=== PATIENT | male | born 1995 | race Caucasian/White ===

== ENCOUNTER → 2017-02-25 | Outpatient (CLI) | payer SELFPAY ==
[2017-02-25 11:21] LABS: HEMATOCRIT 48.3 % (37.9-51.0); HEMOGLOBIN 16.1 g/dL (13.5-17.0); MEAN CORPUSCULAR HEMOGLOBIN 27.7 pg (27.0-33.4); MEAN CORPUSCULAR HGB CONC 33.4 g/dL (32.0-36.0); MEAN CORPUSCULAR VOLUME 83 fl (80-97); RED BLOOD COUNT 5.82 10^6/uL (4.35-5.55); RED CELL DISTRIBUTION WIDTH 13.2 % (11.5-14.0); WHITE BLOOD COUNT 7.3 10^3/uL (4.0-10.5)
[2017-02-25 12:01] LABS: BAND NEUTROPHILS % (MANUAL) 3 % (3-5); BASOPHILS % (MANUAL) 1 % (0-2); EOSINOPHILS % (MANUAL) 12 % (0-6); LYMPHOCYTES % (MANUAL) 26 % (13-45); TOTAL CELLS COUNTED 100
[2017-02-25 12:06] LABS: OVALOCYTES SLIGHT; POIKILOCYTOSIS SLIGHT
[2017-02-25 12:12] LABS: POLYCHROMASIA SLIGHT; STOMATOCYTES SLIGHT
[2017-02-25 12:13] LABS: PLATELET CLUMPS PRESENT
== END ==
LOC: OD 10:04
PROVIDERS: ATTEND Specialist
DX: J32.9 Chronic sinusitis, unspecified (principal)
CPT/HCPCS: 36415; 85025; 87040

== ENCOUNTER 2017-09-28 13:50 | Emergency (ER) | payer SELFPAY ==
--- NOTE | 2017-09-28 15:36 | ER Document Report ---
ED General - General Chief Complaint: Congestion Stated Complaint: HEADACHES,FEVER,CHILLS Time Seen by Provider: 09/28/17 15:08 Mode of Arrival: Ambulatory Information source: Patient TRAVEL OUTSIDE OF THE [place] IN LAST 30 DAYS: No - HPI Patient complains to provider of: Sinus congestion, psychiatric evaluation Onset/Duration: Persistent Quality of pain: Pressure Severity: Mild Notes: Patient is a 21-year-old male he presents to the emergency room complaining of sinus congestion, reporting that he feels as though his sinuses are "being eaten away", or that he "no longer has any sinuses", states that he has had thick green discharge at times, low-grade temps, with nausea, and sore throat at times, and feels his ears popping all the time, sometimes he wakes up in the morning with a facial rash and facial swelling, he has been seen by his primary care provider 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, and placed on antibiotics at different times, has taken antihistamines, [id number] decongestants, and Rhinocort, he is requesting a CT scan to make sure that his sinuses have been been "eaten away", a note from nursing staff indicated that patient's mother has accompanied him to the emergency room and would like to provide further information regarding patient's condition I did have a discussion with patient's mother Priya Tony, with patient's permission, who reports that patient has a long-standing history of psychiatric illness, he is not currently on any medications or in any type of mental health therapy program, but that he self medicates with illegal drugs, shooting up at times, that he has threatened to commit suicide in the past, at one point in time having a toaster plugged in right next to the bathtub while he is bathing, and on Friday he still his mom's debit card, took out $300 which he states he intended to go by a bunch of drugs to overdose on, he gave the money back to her today and admitted that that was his plan, she also indicates that he has been persistently preoccupied with his sinuses for at least the last 2 years and she is concerned this may be a manifestation of his mental illness, he is told her that he believes that there are worms living in his sinuses - Related Data Allergies/Adverse Reactions: No Known Allergies Allergy (Verified 09/28/17 13:56) Home Medications: Current Home Medications No Home Medications 09/28/17 [History] Past Medical History - General Information source: Patient, Parent - Social History Smoking Status: Current Every Day Smoker Drug Abuse: Marijuana Family History: None - Past Medical History Cardiac Medical History: Denies: Hx Heart Attack, Hx Hypertension Pulmonary Medical History: Denies: Hx Asthma Neurological Medical History: Denies: Hx Cerebrovascular Accident, Hx Seizures GI Medical History: Denies: Hx Hepatitis, Hx Hiatal Hernia, Hx Ulcer Infectious Medical History: Denies: Hx Hepatitis Past Surgical History: Reports: Hx Oral Surgery, Hx Orthopedic Surgery - Left foot, Hx Tonsillectomy. Denies: Hx Open Heart Surgery, Hx Pacemaker - Immunizations Hx Diphtheria, Pertussis, Tetanus Vaccination: Yes Review of Systems - Review of Systems Constitutional: No symptoms reported EENT: Sinus pressure Cardiovascular: No symptoms reported Respiratory: No symptoms reported Gastrointestinal: No symptoms reported Genitourinary: No symptoms reported Male Genitourinary: No symptoms reported Musculoskeletal: No symptoms reported Skin: No symptoms reported Hematologic/Lymphatic: No symptoms reported Neurological/Psychological: No symptoms reported -: Yes All other systems reviewed and negative Physical Exam - Vital signs Vitals: Temp Pulse Resp BP Pulse Ox 98.7 F 108 H 16 141/91 H 96 09/28/17 13:57 09/28/17 13:57 09/28/17 13:57 09/28/17 13:57 09/28/17 13:57 Interpretation: Normal - General General appearance: Appears well, Alert - HEENT Head: Normocephalic, Atraumatic Eyes: Normal Pupils: PERRL - Respiratory Respiratory status: No respiratory distress Chest status: Nontender Breath sounds: Normal Chest palpation: Normal - Cardiovascular Rhythm: Regular Heart sounds: Normal auscultation Murmur: No - Abdominal Inspection: Normal Distension: No distension Bowel sounds: Normal Tenderness: Nontender Organomegaly: No organomegaly - Back Back: Normal, Nontender - Extremities General upper extremity: Normal inspection, Nontender, Normal color, Normal ROM , Normal temperature General lower extremity: Normal inspection, Nontender, Normal color, Normal ROM , Normal temperature, Normal weight bearing. No: Kenyetta's sign - Neurological Neuro grossly intact: Yes Cognition: Normal Orientation: AAOx4 Jud Coma Scale Eye Opening: Spontaneous [place] Coma Scale Verbal: Oriented Jud Coma Scale Motor: Obeys Commands Jud Coma Scale Total: 15 Speech: Normal Motor strength normal: LUE, RUE, LLE, RLE Sensory: Normal - Psychological Associated symptoms: Normal affect, Normal mood - Skin Skin Temperature: Warm Skin Moisture: Dry Skin Color: Normal Course - Re-evaluation Re-evalutation: 09/28/17 22:24 Lab and imaging findings are unremarkable and were discussed with patient at bedside, given the information provided by patient's mother I opted to start IVC paperwork on him and have him evaluated by mental health in the morning, as he did take steps towards a suicidal plan, although it eventually he backed out and admitted the plan to his mother, I do believe patient will benefit from the mental health evaluation and ongoing psychiatric treatment, I did discuss this plan with patient at bedside he seems to be cooperative and on board at this point in time 09/28/17 22:25 I did also discuss patient's positive drug screen results with him at bedside, he had initially admitted to smoking marijuana to me, however when I questioned him about opiates he did report that he has been taking Percocets recently - Vital Signs Vital signs: Temp Pulse Resp BP Pulse Ox 98.7 F 108 H 16 141/91 H 96 09/28/17 13:57 09/28/17 13:57 09/28/17 13:57 09/28/17 13:57 09/28/17 13:57 - Laboratory Result Diagrams: 09/28/17 16:15 09/28/17 16:15 Laboratory results interpreted by me: 09/28/17 09/28/17 09/28/17 16:15 16:15 16:19 RBC 5.71 H Eosinophils % 8.8 H Albumin 5.1 H Urine Protein 30 H Urine Urobilinogen 2.0 H Salicylates < 1.0 L Acetaminophen < 10 L - EKG Interpretation by Me EKG shows normal: Sinus rhythm Rate: Normal Rhythm: NSR Discharge - Discharge Clinical Impression: Substance abuse, Suicidal ideation Condition: Stable Disposition: PSYCH HOSP/UNIT
[2017-09-28 16:40] LABS: ABSOLUTE EOSINOPHILS # (AUTO) 0.5 10^3/uL (0.0-0.6); ABSOLUTE LYMPHOCYTES (AUTO) 1.3 10^3/uL (0.5-4.7); ABSOLUTE MONOCYTES (AUTO) 0.4 10^3/uL (0.1-1.4); ABSOLUTE NEUT (AUTO) 3.7 10^3/uL (1.7-8.2); BASOPHILS % (AUTO) 0.5 % (0-2); EOSINOPHILS % (AUTO) 8.8 % (0-6); HEMATOCRIT 46.7 % (37.9-51.0); HEMOGLOBIN 16.1 g/dL (13.5-17.0); HGB HCT DIFFERENCE 1.6; LYMPHOCYTES % (AUTO) 21.2 % (13-45); MEAN CORPUSCULAR HEMOGLOBIN 28.3 pg (27.0-33.4); MEAN CORPUSCULAR HGB CONC 34.5 g/dL (32.0-36.0); MEAN CORPUSCULAR VOLUME 82 fl (80-97); MONOCYTES % (AUTO) 7.4 % (3-13); RED BLOOD COUNT 5.71 10^6/uL (4.35-5.55); RED CELL DISTRIBUTION WIDTH 12.7 % (11.5-14.0); SEGMENTED NEUTROPHILS % (AUTO) 62.1 % (42-78)
--- NOTE | 2017-09-28 16:46 | PSYCHOLOGICAL NOTE ---
Psych Note - Psych Note Psych Note: Patient is a 21 year old male who presents via his mother, due to complaints of something living in his sinus cavity. MD noted concerns over possible paranoia and delusions and petition the patient for an involuntary commitment to further explore the etiology of his presentation. Review of patient's EMR dating back to 2011 suggests a prior psychiatric history, to include prior suicide attempts , placement at [facility], outpatient treatment with [facility] , patient was reportedly etc. per EMR, patient previously engaged in the Suboxone program, but was discharged for noncompliance. EMR reports patient's history includes a diagnosis of mood disorder and ADHD. Mother today reported to MD that there is a family history of schizophrenia. Patient this afternoon states he does not understand why he is being IVC'd and states he came here because of a sinus problem. Patient reports he does smoke some cigarettes per day but denies it to full pack. Patient reports frequent cannabis use. Patient denies any other drugs or alcohol. Patient's mother, Rosalie : left [facility] requesting return contact. Patient is alert and oriented. Mood is anxious with congruent affect. Patient denies suicidal/homicidal ideations, intent, plan, means. Patient denies A/VH. It is unclear if patient is experiencing paranoid delusions at this time. Thought processes were guarded. Conversational speech was within normal limits for rate, tone, and prosody. Intellectual abilities were estimated within average range. Attention and focus are poor. Insight, judgment, impulse control are poor to fair. R/U Unspecified Schizophrenia and or Related Psychosis Patient is recommended to continue under the involuntary commitment petitioned by [facility]. Currently, patient's lab work is still pending, to include toxicology which may assist in determining the etiology of presentation. I consulted with Dr. Guadarrama in regards to the care and management of this patient. DYLANHI is in agreement with disposition and recommendations.
[2017-09-28 16:49] LABS: AMORPHOUS SEDIMENT,URINE TRACE /HPF; APPEARANCE,URINE CLOUDY; BILIRUBIN,URINE NEGATIVE (NEGATIVE); GLUCOSE, URINE NEGATIVE (NEGATIVE); KETONES,URINE NEGATIVE (NEGATIVE); LEUKOCYTE ESTERASE,URINE NEGATIVE (NEGATIVE); NITRITE,URINE NEGATIVE (NEGATIVE); PROTEIN,URINE 30 mg/dL (NEGATIVE); URINE SPECIFIC GRAVITY 1.024
--- NOTE | 2017-09-28 16:53 | RADIOLOGY REPORT (SQ) ---
EXAM DESCRIPTION: CT HEAD WITHOUT COMPLETED DATE/TIME: 09/28/2017 4:27 pm REASON FOR STUDY: injury COMPARISON: None. TECHNIQUE: Axial images acquired through the brain without intravenous contrast. Images reviewed wi th bone, brain and subdural windows. Images stored on PACS. All CT scanners at this facility use dose modulation, iterative reconstruction, and/or weight based d osing when appropriate to reduce radiation dose to as low as reasonably achievable (ALARA). [facility]: Dose Right [facility]: CareDose [facility]: Dose Right [facility]: Teradose 4D [facility]: Fuse Science RADIATION DOSE: Up-to-date CT equipment and radiation dose reduction techniques were employed. CTDIv ol: 49.0 mGy. DLP: 881 mGy-cm. mGy. LIMITATIONS: None. FINDINGS: VENTRICLES: Normal size and contour. CEREBRUM: No masses. No hemorrhage. No midline shift. No evidence for acute infarction. Normal gra y/white matter differentiation. No areas of low density in the white matter. CEREBELLUM: No masses. No hemorrhage. No alteration of density. No evidence for acute infarction. EXTRAAXIAL SPACES: No fluid collections. No masses. ORBITS AND GLOBE: No intra- or extraconal masses. Normal contour of globe without masses. CALVARIUM: No fracture. PARANASAL SINUSES: No fluid or mucosal thickening. SOFT TISSUES: No mass or hematoma. OTHER: No other significant finding. IMPRESSION: NORMAL BRAIN CT WITHOUT CONTRAST. EVIDENCE OF ACUTE STROKE: NO. COMMENT: Quality ID # [id number]: Final reports with documentation of one or more dose reduction techniques (e.g., Automated exposure control, adjustment of the mA and/or kV according to patient size, use of iterative reconstruction technique) TECHNICAL DOCUMENTATION: JOB ID: [id number] [employer]- All Rights Reserved
[2017-09-28 16:56] LABS: ALANINE AMINOTRANSFERASE 36 U/L (21-72); ALBUMIN 5.1 g/dL (3.5-5.0); ALCOHOL < 10 mg/dL (NONE DETECTED); ALKALINE PHOSPHATASE 86 U/L (38-126); ANION GAP 15 (5-19); ASPARTATE AMINO TRANSFERASE 23 U/L (17-59); BILIRUBIN,DIRECT 0.3 mg/dL (0.0-0.4); BILIRUBIN,TOTAL 0.6 mg/dL (0.2-1.3); BLOOD UREA NITROGEN 12 mg/dL (7-20); CALCIUM 9.7 mg/dL (8.4-10.2); CARBON DIOXIDE 30 mmol/L (22-30); CHLORIDE 99 mmol/L (98-107); CREATININE RESULT 0.78 mg/dL (0.52-1.25); GLUCOSE 93 mg/dL (75-110); POTASSIUM 3.7 mmol/L (3.6-5.0); SODIUM 143.9 mmol/L (137-145)
[2017-09-28 17:02] LABS: URINE BARBITURATES SCREEN NEGATIVE; URINE METHADONE SCREEN NEGATIVE; URINE OPIATES LOW UNCONFIRMED POSITIVE; URINE PHENCYCLIDINE SCREEN NEGATIVE
[2017-09-28] MEDS ORDERED: NICOTINE 21 MG/24 HR PATCH.TD24 TD ONE (19:02)
[2017-09-28] MEDS ORDERED: DIPHENHYDRAMINE HCL 50 MG CAPSULE PO ONE (20:18)
[2017-09-29] MEDS ORDERED: CHLORPROMAZINE HCL INJ 25 MG/1 ML AMPULE IM PRN (09:06)
--- NOTE | 2017-09-29 09:18 | EKG REPORT ---
SEVERITY:- ABNORMAL ECG - SINUS RHYTHM NONSPECIFIC INTRAVENTRICULAR CONDUCTION DELAY : Confirmed by: Va Bonner 29-Sep-2017 09:17:53
--- NOTE | 2017-09-29 09:18 | ER Document Report ---
Doctor's Note Notes: 09/29/17 09:18 I have evaluated this patient this am and has no c/o at this time. Feels all of their needs are being met and physical exam is normal. New medications added her psych. Awaiting dispositon per mental health. 09/29/17 15:19 Pt was accepted to [facility] under the care of Dr. Milian. EMTALA filled out and patient is stable for transport by law enforcement.
[2017-09-29] MEDS ORDERED: OLANZAPINE 5 MG TABLET PO SCH (10:00)
[2017-09-29] MEDS ORDERED: BENZTROPINE MESYLATE 1 MG TABLET PO SCH (10:00)
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
[2017-09-29 15:56] VITALS: BP 127/68
== END 2017-09-29 15:30 ==
LOC: ER 13:50
DX: R45.851 Suicidal ideations (principal); F19.10 Other psychoactive substance abuse, uncomplicated; R50.9 Fever, unspecified; F29 Unspecified psychosis not due to a substance or known physiological condition; R51 Headache; F17.200 Nicotine dependence, unspecified, uncomplicated
CPT/HCPCS: 36415; 70450; 80053; 80307; 81001; 85025; 93005; 93010; 99285

== ENCOUNTER 2017-10-06 18:48 | Emergency (ER) | payer SELFPAY ==
[2017-10-06 19:35] VITALS: BP 134/82
--- NOTE | 2017-10-06 23:17 | ER Document Report ---
ED General - General Chief Complaint: Flu Symptoms Stated Complaint: CHILLS,HEAD CONGESTION,MUSCLE SPASMS Time Seen by Provider: 10/06/17 22:45 Notes: Patient is a 21-year-old male with a past medical history of prior psychiatric diagnoses, chronic physical complaints, recently seen in the emergency department for suicidal ideation and apparently spent 1 week as an inpatient and was diagnosed with depression anxiety but has refused to take medications who presents with a multitude of complaints. Patient states repeatedly that he is having diffuse muscle spasms and believes he may have tetanus. He also reports that he has chronic sinus pressure that there must be something wrong with his sinuses. He states the symptoms have been constant and unchanged for the past 2 years. He states he has been taking Augmentin that was prescribed during his most recent evaluation in the emergency department but it has not all improved his discomfort. He denies any fever or vomiting. No focal weakness or numbness. His mother at the bedside does note that the patient feels very strongly that he has something wrong with him despite multiple repeated negative evaluations by ENT, neurology, and primary care doctors. TRAVEL OUTSIDE OF THE [place] IN LAST 30 DAYS: No - Related Data Allergies/Adverse Reactions: No Known Allergies Allergy (Verified 09/28/17 13:56) Past Medical History - General Information source: Patient - Social History Smoking Status: Current Every Day Smoker Frequency of alcohol use: Occasional Drug Abuse: Marijuana, Prescription drugs Lives with: Parents Family History: Reviewed & Not Pertinent Patient has suicidal ideation: No Patient has homicidal ideation: No - Past Medical History Cardiac Medical History: Denies: Hx Heart Attack, Hx Hypertension Pulmonary Medical History: Denies: Hx Asthma Neurological Medical History: Denies: Hx Cerebrovascular Accident, Hx Seizures Renal/ Medical History: Denies: Hx Peritoneal Dialysis GI Medical History: Denies: Hx Hepatitis, Hx Hiatal Hernia, Hx Ulcer Infectious Medical History: Denies: Hx Hepatitis Past Surgical History: Reports: Hx Oral Surgery, Hx Orthopedic Surgery - Left foot, Hx Tonsillectomy. Denies: Hx Open Heart Surgery, Hx Pacemaker - Immunizations Hx Diphtheria, Pertussis, Tetanus Vaccination: Yes Review of Systems - Review of Systems Notes: Constitutional: Negative for fever. HENT: Negative for sore throat. Positive for sinus pressure Eyes: Negative for visual changes. Cardiovascular: Negative for chest pain. Respiratory: Negative for shortness of breath. Gastrointestinal: Negative for abdominal pain, vomiting or diarrhea. Genitourinary: Negative for dysuria. Musculoskeletal: Negative for back pain. Positive for muscle spasms Skin: Negative for rash. Neurological: Negative for headaches, weakness or numbness. 10 point ROS negative except as marked above and in HPI. Physical Exam - Vital signs Vitals: Temp Pulse Resp BP Pulse Ox 99.0 F 101 H 18 134/82 H 99 10/06/17 19:33 10/06/17 19:33 10/06/17 19:33 10/06/17 19:33 10/06/17 19:33 Interpretation: Normal Notes: PHYSICAL EXAMINATION: GENERAL: Well-appearing, well-nourished and in no acute distress. HEAD: Atraumatic, normocephalic. EYES: Pupils equal round and reactive to light, extraocular movements intact, sclera anicteric, conjunctiva are normal. ENT: nares patent, oropharynx clear without exudates. Moist mucous membranes. NECK: Normal range of motion, supple without lymphadenopathy LUNGS: Breath sounds clear to auscultation bilaterally and equal. No wheezes rales or rhonchi. HEART: Regular rate and rhythm without murmurs ABDOMEN: Soft, nontender, normoactive bowel sounds. No guarding, no rebound. No masses appreciated. EXTREMITIES: Normal range of motion, no pitting or edema. No cyanosis. NEUROLOGICAL: No focal neurological deficits. Moves all extremities spontaneously and on command. PSYCH: Normal mood, normal affect. SKIN: Warm, Dry, normal turgor, no rashes or lesions noted. Course - Re-evaluation Re-evalutation: 10/06/17 23:16 Patient presents with multiple vague complaints that did not appear to be concerning for any acute life-threatening pathology. Patient's clinical history and exam is most consistent with chronic somatizations in the setting of psychiatric illness. Vitals are within normal limits at triage and at time of discharge. Physical examination is unremarkable. Patient has tolerated oral intake without difficulty. Patient was not noted to be in distress at any point during their ER visit. At this time, based on the reassuring evaluation, I do not suspect an acute [place], pulmonary embolus, aortic dissection, acute intra- abdominal pathology, stroke, or sepsis.Will discharge with return precautions and follow-up recommendations. Verbal discharge instructions given a the bedside and opportunity for questions given. Medication warnings reviewed. Patient is in agreement with this plan and has verbalized understanding of return precautions and the need for primary care follow-up in the next 24-72 hours. - Vital Signs Vital signs: Temp Pulse Resp BP Pulse Ox 99.0 F 101 H 18 134/82 H 99 10/06/17 19:33 10/06/17 19:33 10/06/17 19:33 10/06/17 19:33 10/06/17 19:33 Discharge - Discharge Clinical Impression: Somatic symptom disorder, Muscle spasm Condition: Good Disposition: HOME, SELF-CARE Additional Instructions: Please return to the emergency room immediately if you experience any concerning symptoms including high fevers, severe headache, chest pain, difficulty breathing, abdominal pain, slurred speech, numbness or weakness in your arms or legs, or any other symptom that concerns you.
== END 2017-10-06 23:15 | disposition home or self-care (01) ==
LOC: ER 18:48
DX: F45.9 Somatoform disorder, unspecified (principal); M62.838 Other muscle spasm; F17.200 Nicotine dependence, unspecified, uncomplicated
CPT/HCPCS: 99283

== ENCOUNTER → 2018-01-03 | Outpatient (CLI) | payer SELFPAY ==
--- NOTE | 2018-01-04 14:05 | RADIOLOGY REPORT (SQ) ---
EXAM DESCRIPTION: MRI HEAD WITHOUT COMPLETED DATE/TIME: 01/03/2018 3:27 pm REASON FOR STUDY: CHRONIC SINUSITIS, LOW BACK PAIN J32.9 CHRONIC SINUSITIS, UNSPECIFIED M54.5 LOW BACK PAIN COMPARISON: None. TECHNIQUE: Multiplanar imaging includes non-contrasted T1, T2, FLAIR, and diffusion with ADC map seq uences. Images stored on PACS. LIMITATIONS: None. FINDINGS: ANATOMY: No anomalies. Normal vascular flow voids. Pituitary fossa normal. CSF SPACES: Normal in size and contour. No hemorrhage. CEREBRUM: Sulci and gyri normal in size and contour. Normal white matter signal on FLAIR imaging. No evidence of hemorrhage, mass, or extraaxial fluid collection. POSTERIOR FOSSA: No signal alteration. No hemorrhage. No edema, masses or mass effect. Internal miley tory canals, cerebello-pontine angles, mastoids normal. DIFFUSION IMAGING: Negative for acute or sub-acute infarction. ORBITS: No masses. Globes normal. PARANASAL SINUSES: Minimal chronic maxillary sinus disease. OTHER: No other significant finding. IMPRESSION: NORMAL MRI OF THE BRAIN WITHOUT INTRAVENOUS GADOLINIUM CONTRAST. EVIDENCE OF ACUTE STROKE: NO. TECHNICAL DOCUMENTATION: JOB ID: [id number] [employer]- All Rights Reserved Reading location - IP/workstation name: [email or web address]
--- NOTE | 2018-01-04 15:02 | RADIOLOGY REPORT (SQ) ---
EXAM DESCRIPTION: MRI LUMBAR SPINE COMBO COMPLETED DATE/TIME: 01/03/2018 3:27 pm REASON FOR STUDY: CHRONIC SINUSITIS, LOW BACK PAIN J32.9 CHRONIC SINUSITIS, UNSPECIFIED M54.5 LOW BACK PAIN COMPARISON: None. TECHNIQUE: Sagittal and Axial imaging includes T1, T1 post gadolinium, T2, STIR and gradient echo se quences. Coronal T2/HASTE imaging. CONTRAST TYPE AND DOSE: Not documented RENAL FUNCTION: None required. The patient is less than 50 years old. LIMITATIONS: None. FINDINGS: VISUALIZED UPPER ABDOMEN: Limited evaluation. No acute or suspicious findings suggested. SEGMENTATION: No transitional anatomy. The lowest well-developed disc space is labeled L5-S1. ALIGNMENT: Anatomic. VERTEBRAE: Intact. No fractures. BONE MARROW: Normal. No marrow replacement or reactive changes. DISC SIGNAL: Normal. No significant abnormal signal or loss of height. POSTERIOR ELEMENTS: Generally intact. No pars defect evident. HARDWARE: None in the spine. CORD AND CONUS: Normal in size and signal intensity. Conus at the appropriate level. SOFT TISSUES: No aortic aneurysm seen. No bulky retroperitoneal adenopathy or mass. No paraspinal mas s or fluid. L1-L2: No significant spinal stenosis or exit foraminal stenosis. L2-L3: No significant spinal stenosis or exit foraminal stenosis. L3-L4: No significant spinal stenosis or exit foraminal stenosis. L4-L5: No significant spinal stenosis or exit foraminal stenosis. L5-S1: No significant spinal stenosis or exit foraminal stenosis. LOWER THORACIC: Incompletely imaged. No stenosis seen. SACRUM: Visualized upper sacrum intact. ENHANCEMENT: No abnormal enhancement. OTHER: No other significant findings. IMPRESSION: NORMAL MRI LUMBAR SPINE. TECHNICAL DOCUMENTATION: JOB ID: [id number] [employer]- All Rights Reserved Reading location - IP/workstation name: [email or web address]
== END ==
LOC: RAD 14:06
PROVIDERS: ATTEND Physician Assistant
DX: J32.9 Chronic sinusitis, unspecified (principal); M54.5 Low back pain
CPT/HCPCS: 72158; 70551; A9577

== ENCOUNTER 2018-03-27 | Emergency (ER) | payer OTHER ==
--- NOTE | 2018-03-27 21:17 | ER Document Report ---
ED General - General Chief Complaint: Stiff Neck Stated Complaint: NECK/SHOULDER PAIN Time Seen by Provider: 03/27/18 20:24 Mode of Arrival: Ambulatory Information source: Patient, Parent Notes: 22-year-old male presents with what he states is a 4 year duration of bacteria eating him from the inside out. Patient states he feels bacteria is all throughout his body in his face and his back in the spinal cord in his abdomen. Patient also notes that he has neck and muscle tightness after he yawned, patient also notes that he has numbness of his right toes and numbness of the third fourth fifth digits on his right hand. Patient denies any fevers patient notes a rash on his face of 1 year duration. TRAVEL OUTSIDE OF THE [place] IN LAST 30 DAYS: No - HPI Onset: Other - 3-4 year duration Onset/Duration: Waxing and waning Quality of pain: Cramping Severity: Mild Pain Level: 1 Associated symptoms: Other Exacerbated by: Denies Relieved by: Denies Similar symptoms previously: Yes Recently seen / treated by doctor: Yes - Patient has been seen by multiple physicians with no improvement of symptom - Related Data Allergies/Adverse Reactions: No Known Allergies Allergy (Verified 11/23/17 17:45) Past Medical History - Social History Smoking Status: Former Smoker Cigarette use (# per day): No Chew tobacco use (# tins/day): No Smoking Education Provided: No Frequency of alcohol use: None Drug Abuse: None Family History: Reviewed & Not Pertinent Patient has suicidal ideation: No Patient has homicidal ideation: No - Past Medical History Cardiac Medical History: Denies: Hx Heart Attack, Hx Hypertension Pulmonary Medical History: Denies: Hx Asthma Neurological Medical History: Denies: Hx Cerebrovascular Accident, Hx Seizures Renal/ Medical History: Denies: Hx Peritoneal Dialysis GI Medical History: Denies: Hx Hepatitis, Hx Hiatal Hernia, Hx Ulcer Infectious Medical History: Denies: Hx Hepatitis Past Surgical History: Reports: Hx Oral Surgery, Hx Orthopedic Surgery - Left foot, Hx Tonsillectomy. Denies: Hx Open Heart Surgery, Hx Pacemaker - Immunizations Hx Diphtheria, Pertussis, Tetanus Vaccination: Yes Review of Systems - Review of Systems Notes: REVIEW OF SYSTEMS: CONSTITUTIONAL : Denies fever, chills, or sweats. Admits to chronic illness. EENT: Admits to nasal drainage CARDIOVASCULAR: Denies chest pain. Denies palpitations or racing or irregular heart beat. Denies ankle edema. RESPIRATORY: Denies cough, cold, or chest congestion. Denies shortness of breath, difficulty breathing, or wheezing. GASTROINTESTINAL: Denies abdominal pain or distention. Denies nausea, vomiting , or diarrhea. Denies blood in vomitus, stools, or per rectum. Denies black, tarry stools. Denies constipation. GENITOURINARY: Denies difficulty urinating, painful urination, burning, frequency, blood in urine, or discharge. MUSCULOSKELETAL: Admits to neck pain muscle tightness SKIN: Admits to facial rash HEMATOLOGIC : Denies easy bruising or bleeding. LYMPHATIC: Denies swollen, enlarged glands. NEUROLOGICAL: Denies confusion or altered mental status. Denies passing out or loss of consciousness. Denies dizziness or lightheadedness. Denies headache. Denies weakness or paralysis or loss of use of either side. Denies problems with gait or speech. Denies sensory loss, numbness, or tingling. Denies seizures. PSYCHIATRIC: Admits to anxiety ALL OTHER SYSTEMS REVIEWED AND NEGATIVE. Dictation was performed using [employer] voice recognition software PHYSICAL EXAMINATION: GENERAL: Well-appearing, well-nourished and in no acute distress. HEAD: Atraumatic, normocephalic. EYES: Pupils equal round and reactive to light, extraocular movements intact, sclera anicteric, conjunctiva are normal. ENT: Nares patent, oropharynx clear without exudates. Moist mucous membranes. NECK: Normal range of motion, supple without lymphadenopathy LUNGS: Breath sounds clear to auscultation bilaterally and equal. No wheezes rales or rhonchi. HEART: Regular rate and rhythm without murmurs ABDOMEN: Soft, nontender, nondistended abdomen. No guarding, no rebound. No masses appreciated. Musculoskeletal: Normal range of motion, no pitting or edema. No cyanosis. NEUROLOGICAL: Cranial nerves grossly intact. Normal speech, normal gait. Normal sensory, motor exams PSYCH: Extremely anxious and paranoid. SKIN: Dry eczema rash on face Physical Exam - Vital signs Vitals: Temp Pulse Resp BP Pulse Ox 98.3 F 111 H 18 138/82 H 97 03/27/18 20:21 03/27/18 20:21 03/27/18 20:21 03/27/18 20:21 03/27/18 20:21 Course - Re-evaluation Re-evalutation: 03/27/18 23:07 I have explained to this patient that there is no bacteria that is eating him from the inside out, especially not one that is lasted 3-4 years without causing any fevers or any abnormalities. Patient overall looks well is in no distress is extremely anxious and paranoid, his mother seems to agree with his statements, they are requesting a lumbar puncture be performed for possible abscesses in his back, I have explained to them that I will not be performing a lumbar puncture as there is no qualifications or criteria for this at this time. However I will give them mental health evaluation and neurology follow- up patient will also be given steroid cream for his dry rash on his face After performing a Medical Screening Examination, I estimate there is LOW risk for CENTRAL CORD SYNDROME, LUDWIGS ANGINA, PERITONSILLAR ABSCESS, RETROPHARYNGEAL ABSCESS, EPIDURAL MASS LESION, SEVERE SPINAL STENOSIS, ARTERIAL DISSECTION, MENINGITIS, or ACUTE CORONARY SYNDROME, thus I consider the discharge disposition reasonable. I have reevaluated this patient multiple times and no significant life threatening changes are noted. The patient and I have discussed the diagnosis and risks, and we agree with discharging home to follow-up on an outpatient basis with the understanding that symptoms and presentations can change. We also discussed returning to the Emergency Department immediately if new or worsening symptoms occur. We have discussed the symptoms which are most concerning (e.g., saddle anesthesia, urinary or bowel incontinence or retention, changing or worsening pain) that necessitate immediate return. - Vital Signs Vital signs: Temp Pulse Resp BP Pulse Ox 98.3 F 99 18 129/82 H 97 03/27/18 21:25 03/27/18 21:25 03/27/18 21:25 03/27/18 21:25 03/27/18 21:25 Discharge - Discharge Clinical Impression: Rash and nonspecific skin eruption, Anxiety Condition: Stable Disposition: HOME, SELF-CARE Instructions: Anxiety ([facility]) Prescriptions: Hydrocortisone/Oatmeal/Aloe/E [Hydrocortisone 1% Cream] 28.4 gm TP BID #1 cream.gm. Referrals: SONAL SCOTT MD [NO LOCAL MD] - Follow up tomorrow
== END 2018-03-27 21:27 | disposition home or self-care (01) ==
CPT/HCPCS: 99283

== ENCOUNTER 2018-05-05 12:43 | Emergency (ER) | payer OTHER ==
--- NOTE | 2018-05-05 13:02 | ER Document Report ---
ED Medical Screen (RME) - General Chief Complaint: Psych Problem Stated Complaint: IVC W/PAPERS Time Seen by Provider: 05/05/18 12:54 Notes: RAPID MEDICAL EVALUATION DISCLOSURE I have seen this patient as part of a Rapid Medical Evaluation and, if applicable, placed any initially appropriate orders. The patient will be seen and fully evaluated, including a full history and physical exam, by a provider ( in Main ED or Fast Track) when a room becomes available. 22-year-old male brought here by the geospatial intelligence analyst's office for "suicidal ideations, cursing out bystanders, lasting 1 minute, thinking he is dying, and refusing to take treatment for possible bipolar or schizophrenia" per the IVC paperwork filled out by his mother. The patient denies all of this. He denies SI HI hallucinations. EXAM Tachycardic Appears calm/cooperative TRAVEL OUTSIDE OF THE [place] IN LAST 30 DAYS: No - Related Data Allergies/Adverse Reactions: No Known Allergies Allergy (Verified 05/05/18 12:43) Past Medical History - Social History Chew tobacco use (# tins/day): No Frequency of alcohol use: None Drug Abuse: None - Past Medical History Cardiac Medical History: Denies: Hx Heart Attack, Hx Hypertension Pulmonary Medical History: Denies: Hx Asthma Neurological Medical History: Denies: Hx Cerebrovascular Accident, Hx Seizures Renal/ Medical History: Denies: Hx Peritoneal Dialysis GI Medical History: Denies: Hx Hepatitis, Hx Hiatal Hernia, Hx Ulcer Psychiatric Medical History: Reports: Hx Bipolar Disorder, Hx Depression, Hx Schizophrenia Infectious Medical History: Denies: Hx Hepatitis Past Surgical History: Reports: Hx Oral Surgery, Hx Orthopedic Surgery - Left foot, Hx Tonsillectomy. Denies: Hx Open Heart Surgery, Hx Pacemaker - Immunizations Hx Diphtheria, Pertussis, Tetanus Vaccination: Yes Physical Exam - Vital signs Vitals: Temp Pulse Resp BP Pulse Ox 99.8 F 125 H 16 139/81 H 96 05/05/18 12:47 05/05/18 12:47 05/05/18 12:47 05/05/18 12:47 05/05/18 12:47 Course - Vital Signs Vital signs: Temp Pulse Resp BP Pulse Ox 99.8 F 125 H 16 139/81 H 96 05/05/18 12:47 05/05/18 12:47 05/05/18 12:47 05/05/18 12:47 05/05/18 12:47
[2018-05-05 13:28] LABS: ABSOLUTE EOSINOPHILS # (AUTO) 0.1 10^3/uL (0.0-0.6); ABSOLUTE LYMPHOCYTES (AUTO) 1.2 10^3/uL (0.5-4.7); ABSOLUTE MONOCYTES (AUTO) 0.7 10^3/uL (0.1-1.4); ABSOLUTE NEUT (AUTO) 7.7 10^3/uL (1.7-8.2); BASOPHILS % (AUTO) 0.5 % (0-2); EOSINOPHILS % (AUTO) 0.8 % (0-6); HEMATOCRIT 46.4 % (37.9-51.0); HEMOGLOBIN 15.8 g/dL (13.5-17.0); LYMPHOCYTES % (AUTO) 12.8 % (13-45); MEAN CORPUSCULAR HEMOGLOBIN 28.2 pg (27.0-33.4); MEAN CORPUSCULAR HGB CONC 34.1 g/dL (32.0-36.0); MEAN CORPUSCULAR VOLUME 83 fl (80-97); MONOCYTES % (AUTO) 6.7 % (3-13); PLATELET COUNT 201 10^3/uL (150-450); RED CELL DISTRIBUTION WIDTH 13.4 % (11.5-14.0); SEGMENTED NEUTROPHILS % (AUTO) 79.2 % (42-78); TOTAL CELLS COUNTED % (AUTO) 100 %; WHITE BLOOD COUNT 9.7 10^3/uL (4.0-10.5)
[2018-05-05 13:46] LABS: ALANINE AMINOTRANSFERASE 40 U/L (21-72); ALBUMIN 5.2 g/dL (3.5-5.0); ALKALINE PHOSPHATASE 68 U/L (38-126); ANION GAP 15 (5-19); ASPARTATE AMINO TRANSFERASE 48 U/L (17-59); BILIRUBIN,DIRECT 0.3 mg/dL (0.0-0.4); BILIRUBIN,TOTAL 0.9 mg/dL (0.2-1.3); BLOOD UREA NITROGEN 18 mg/dL (7-20); CALCIUM 9.6 mg/dL (8.4-10.2); CARBON DIOXIDE 27 mmol/L (22-30); CHLORIDE 104 mmol/L (98-107); GLUCOSE 106 mg/dL (75-110); POTASSIUM 3.5 mmol/L (3.6-5.0); SODIUM 146.4 mmol/L (137-145); TOTAL PROTEIN 8.1 g/dL (6.3-8.2)
[2018-05-05 13:47] LABS: ACETAMINOPHEN < 10 ug/mL (10-30); ALCOHOL < 10 mg/dL (NONE DETECTED); SALICYLATE < 1.0 mg/dL (2.0-20.0)
[2018-05-05 14:37] LABS: APPEARANCE,URINE CLOUDY; BILIRUBIN,URINE NEGATIVE (NEGATIVE); GLUCOSE, URINE NEGATIVE (NEGATIVE); KETONES,URINE 80 mg/dL (NEGATIVE); LEUKOCYTE ESTERASE,URINE NEGATIVE (NEGATIVE); NITRITE,URINE NEGATIVE (NEGATIVE); PROTEIN,URINE NEGATIVE (NEGATIVE); URINE SPECIFIC GRAVITY 1.026; UROBILINOGEN,URINE NEGATIVE mg/dL (<2.0)
[2018-05-05 14:41] LABS: URINE AMPHETAMINES SCREEN NEGATIVE; URINE BARBITURATES SCREEN NEGATIVE; URINE BENZODIAZEPINES SCREEN NEGATIVE; URINE COCAINE SCREEN NEGATIVE; URINE MARIJUANA (THC) SCREEN NEGATIVE; URINE METHADONE SCREEN NEGATIVE; URINE PHENCYCLIDINE SCREEN NEGATIVE
[2018-05-05 14:42] LABS: COLOR,URINE YELLOW
--- NOTE | 2018-05-05 14:45 | ER Document Report ---
ED Psych Disorder / Suicide - General Chief Complaint: Psych Problem Stated Complaint: IVC W/PAPERS Time Seen by Provider: 05/05/18 12:54 Notes: 22-year-old male brought here by the mediation commissioner's office for "suicidal ideations, cursing out bystanders, lasting 1 minute, thinking he is dying, and refusing to take treatment for possible bipolar or schizophrenia" per the IVC paperwork filled out by his mother. The patient denies all of this. He denies SI HI hallucinations. Chief complaint: Suicidal History of complain:( obtained from----patient) 22 years old male with a psychiatric history was shouting on [id number] and yelling that that he wants to end his life and Huan is coming. And apparently not been taking his medication. Therefore he was an IVC by the mother and the police brought him to the ED. Though patient denies. Onset: As above Duration: Sudden just prior to arrival Severity: Moderate to severe Quality: Psychosis Context: Exacerbating factor and relieving factors: Noncontributory REVIEW OF SYSTEMS: CONSTITUTIONAL : Denies fever, chills, or sweats. Denies recent illness. EENT: Denies eye, ear, throat, or mouth pain or symptoms. Denies nasal or sinus congestion or discharge. Denies throat, tongue, or mouth swelling or difficulty swallowing. CARDIOVASCULAR: Denies chest pain. Denies palpitations or racing or irregular heart beat. Denies ankle edema. RESPIRATORY: Denies cough, cold, or chest congestion. Denies shortness of breath, difficulty breathing, or wheezing. GASTROINTESTINAL: Denies distention. Denies nausea, vomiting, or diarrhea. Denies blood in vomitus, stools, or per rectum. Denies black, tarry stools. Denies constipation. GENITOURINARY: Denies difficulty urinating, painful urination, burning, frequency, blood in urine, or discharge. FEMALE GENITOURINARY: Denies vaginal bleeding, heavy or abnormal periods, irregular periods. Denies vaginal discharge or odor. MUSCULOSKELETAL: Denies back or neck pain or stiffness. Denies joint pain or swelling. SKIN: Denies rash, lesions or sores. HEMATOLOGIC : Denies easy bruising or bleeding. LYMPHATIC: Denies swollen, enlarged glands. NEUROLOGICAL: Denies confusion or altered mental status. Denies passing out or loss of consciousness. Denies dizziness or lightheadedness. Denies headache. Denies weakness or paralysis or loss of use of either side. Denies problems with gait or speech. Denies sensory loss, numbness, or tingling. Denies seizures. PSYCHIATRIC: Denies anxiety or stress. Hallucination and appeared to be calm not eliciting any depression or suicidal ideation ALL OTHER SYSTEMS REVIEWED AND NEGATIVE. PHYSICAL EXAMINATION: GENERAL: Well-appearing, well-nourished and in no acute distress. HEAD: Atraumatic, normocephalic. EYES: Pupils equal round and reactive to light, extraocular movements intact, conjunctiva are normal. ENT: Nares patent, oropharynx clear without exudates. Moist mucous membranes. NECK: Normal range of motion, supple without lymphadenopathy LUNGS: Breath sounds clear to auscultation bilaterally and equal. No wheezes rales or rhonchi. HEART: Regular rate and rhythm without murmurs ABDOMEN: Soft, nontender, nondistended abdomen. No guarding, no rebound. No masses appreciated. Examination of genitals-deferred Musculoskeletal: Normal range of motion, no pitting or edema. No cyanosis. NEUROLOGICAL: Cranial nerves grossly intact. Normal speech, normal gait. Normal sensory, motor exams PSYCH: Normal mood, normal affect. Suicidal ideation. SKIN: Warm, Dry, normal turgor, no rashes or lesions noted. Dictation was performed using [employer] voice recognition software Addendum: Patient had an episode of psychosis with abnormal behavior running and jumping on the bed calling that Huan is coming. He has direct communication with him. TRAVEL OUTSIDE OF THE [place] IN LAST 30 DAYS: No - Related Data Allergies/Adverse Reactions: No Known Allergies Allergy (Verified 05/05/18 12:43) Past Medical History - Social History Smoking Status: Current Some Day Smoker Chew tobacco use (# tins/day): No Frequency of alcohol use: None Drug Abuse: None Family History: Reviewed & Not Pertinent Patient has suicidal ideation: No Patient has homicidal ideation: No - Past Medical History Cardiac Medical History: Denies: Hx Heart Attack, Hx Hypertension Pulmonary Medical History: Denies: Hx Asthma Neurological Medical History: Denies: Hx Cerebrovascular Accident, Hx Seizures Renal/ Medical History: Denies: Hx Peritoneal Dialysis GI Medical History: Denies: Hx Hepatitis, Hx Hiatal Hernia, Hx Ulcer Psychiatric Medical History: Reports: Hx Bipolar Disorder, Hx Depression, Hx Schizophrenia Infectious Medical History: Denies: Hx Hepatitis Past Surgical History: Reports: Hx Oral Surgery, Hx Orthopedic Surgery - Left foot, Hx Tonsillectomy. Denies: Hx Open Heart Surgery, Hx Pacemaker - Immunizations Hx Diphtheria, Pertussis, Tetanus Vaccination: Yes Review of Systems - Review of Systems Notes: Dictated Physical Exam - Vital signs Vitals: Temp Pulse Resp BP Pulse Ox 99.8 F 125 H 16 139/81 H 96 05/05/18 12:47 05/05/18 12:47 05/05/18 12:47 05/05/18 12:47 05/05/18 12:47 - Notes Notes: Dictated Course - Re-evaluation Re-evalutation: 05/05/18 17:21 Given antipsychotic medications - Vital Signs Vital signs: Temp Pulse Resp BP Pulse Ox 99.8 F 125 H 16 139/81 H 96 05/05/18 12:47 05/05/18 12:47 05/05/18 12:47 05/05/18 12:47 05/05/18 12:47 - Laboratory Result Diagrams: 05/05/18 13:08 05/05/18 13:08 Laboratory results interpreted by me: 05/05/18 05/05/18 05/05/18 13:08 13:08 13:17 RBC 5.60 H Seg Neutrophils % 79.2 H Lymphocytes % 12.8 L Sodium 146.4 H Potassium 3.5 L Albumin 5.2 H Urine Ketones 80 H Urine Ascorbic Acid 40 H Salicylates < 1.0 L Acetaminophen < 10 L Discharge - Discharge Clinical Impression: Acute psychosis
[2018-05-05] MEDS ORDERED: BENZTROPINE MESYLATE INJ 2 MG/2 ML AMPULE IM ONE ×2 (15:34→20:15)
[2018-05-05] MEDS ORDERED: CHLORPROMAZINE HCL INJ 25 MG/1 ML AMPULE IM SCH (15:45)
--- NOTE | 2018-05-05 16:03 | PSYCHOLOGICAL NOTE ---
Psych Note - Psych Note Psych Note: Reason for Consult: abnormal behaviour 22-year-old male brought here by the floor care specialist's office for "suicidal ideations, cursing out bystanders, lasting 1 minute, thinking he is dying, and refusing to take treatment for possible bipolar or schizophrenia" per the IVC paperwork filled out by his mother. The patient denies all of this. He denies SI HI hallucinations. Clinician greeted patient who presented very polite and calm. He disclosed that he does not understand why he is here stating that his mother is saying things that are untrue. Patient admits to cussing when he accidentally hit his leg with a weed sintia however denies cussing for extended period of time or intending because anyone harm her to scare them. Patient reports that he lives with his grandmother; denies suicidal and homicidal ideation. Patient provides consent for clinician to call the patient's grandmother to only discuss with his grandmother if she has any concerns. Behavior health team received phone call from patient's mother. She disclose significant concern for the patient. She reports the patient will be fine one moment and then the next moment he is out of control. She disclosed that today Clinician spoke with Birdie Tony, patient's grandmother. She states the patient "needs some help... more than I can help him... when he gets mad it is like his two different people... there is a good and then there is some kind of evil." She reports that the patient is unable to maintain employment. She reports that last night he went to the taoist and he was "out of control" focused on baptism, scared the young children , and was running up and down the street "praising the Lord." She disclosed that the patient verbalizes suicidal ideation frequently is very manipulative. She continued to report the patient is very focused on his health and feels that he is always dying; "he is always on the Internet looking up things to try to figure out what is wrong with him." She discloses "I am afraid he will snap at me he has never been physical with me at though." She continues state "he is not fit for society I do not know what is wrong with him he needs help." She reports that today patient's boss Danielito, called her asking what was wrong with the patient because he is "crazy." [facility] ED visit 05/01/2018 attending physicians' noted: Patient presents complaining of being sick and needing to come to a definitive conclusion to symptoms he has been having for the past 3 and half years. Patient complains of a facial rash and feeling as though his skin is falling off. Patient also reports twitching and pinpricking sensation in his eyes and headache pain with a sensation that feels like something needs to come out of his head. Patient states that he feels as though things are coming from his nose that are coming from inside of his head, patient then proceeded to pick his nose, and show me this is evidence of what needs to come out of his head. He denies fever or chills, nausea vomiting, current headache, or any current symptoms other than the sensation that something needs to "come out of the head ". Patient states he had an autoimmune panel already performed an extensive workup by his primary care provider. Patient denies suicidal or homicidal ideation. He states he has been told that it is psychological or anxiety related but he does not feel that this is the case. He denies any daily medications or diagnosed medical problems. Patient did become suddenly emotional, began talking about spiritual matters, began speaking about Huan and his spiritual condition. He is not suicidal or homicidal. He states he does not want any additional help for this. Patient got up and left the room. I discussed with mom, she states that she feels that patient has schizophrenia based on his delusions and abnormal behaviors, however patient has already had this discussed in detail and has refused all evaluation and treatment for this. She states that if he were restrained and held here he would be discharged and then he would not take his medications. She states she is ready to just take him home. Clinician met with patient again after receiving collateral information and reviewing patient's chart. When clinician asked the patient to explain the different reports the patient is disclosing verses other reports, the patient became withdrawn. Clinician ask the patient to explain in his words what happened Friday during his [facility] ED visit patient became visibly upset stating "I see...you know... You know what happened." Clinician calmly explain that it was not known and that was why he was being asked when the patient put his hands behind his head turned his head to the side was shaking his leg at which point the patient turned his head back towards the patient clinician started to verbally threatening the clinician stating "you better watch out... I am God's favorite... you better watch yourself." Patient continued to escalate screaming and hollering with hyper hindu tones. Patient required medication intervention. Medication recommendations per [facility]'s contracted psychiatrist Dr. Kwesi HUGHES are as follows 1. Zyprexa 5 mg twice daily 2. Cogentin 2 mg daily 3. Thorazine 50 mg every 8 hours 298.9 (F29) unspecified schizophrenia spectrum and other psychotic disorder per history Impression\\plan: Patient is recommended to continue under IVC. Patient was originally very calm, cooperative and polite; however, patient immediately flipped when speaking with clinician the second time. Patient accused the clinician of knowing some unknown information related to his [facility] ED visit last Friday (05/01/2018) and started to verbally threaten the clinician stating; " you better watch out... I am God's favorite... you better watch yourself." Patient was unable to be redirected started yelling and screaming and was very fixated on hindu beliefs. Medication intervention was needed. Medication recommendations have been provided. Dr. Guadarrama was consulted and the care management this patient; attending physician is in agreement with recommendations and disposition.
--- NOTE | 2018-05-05 19:47 | EKG REPORT ---
SEVERITY:- OTHERWISE NORMAL ECG - SINUS TACHYCARDIA BORDERLINE RIGHT AXIS DEVIATION ST ELEV, PROBABLE NORMAL EARLY REPOL PATTERN : Confirmed by: Gavi Paulson MD 05-May-2018 19:46:59
[2018-05-05] MEDS: OLANZAPINE 5 MG TABLET PO SCH (19:59)
[2018-05-05] MEDS ORDERED: OLANZAPINE INJ/PF 10 MG SDV IM ONE (20:03)
[2018-05-05] MEDS: CHLORPROMAZINE HCL INJ 25 MG/1 ML AMPULE IM SCH (22:35)
[2018-05-06] MEDS: CHLORPROMAZINE HCL INJ 25 MG/1 ML AMPULE IM SCH (06:21)
--- NOTE | 2018-05-06 10:25 | ER Document Report ---
Doctor's Note Notes: 05/06/18 10:24 Rounds: Chart reviewed. Patient sleeping and I did not disturb him. Vital signs are all essentially normal. Labs were normal except for potassium of 3.5. I do not think that needs to be treated at this time. Patient has a history of bipolar disorder and schizophrenia. Patient appears to be medically stable for transfer or discharge. Temi Esquivel MD
[2018-05-06] MEDS: BENZTROPINE MESYLATE 1 MG TABLET PO SCH (10:36)
[2018-05-06] MEDS: OLANZAPINE 5 MG TABLET PO SCH ×2 (10:36→17:17)
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
[2018-05-06] MEDS ORDERED: CHLORPROMAZINE HCL 50 MG TABLET PO ONE (19:54)
[2018-05-06] MEDS ORDERED: CHLORPROMAZINE HCL 50 MG TABLET PO SCH (20:15)
[2018-05-07] MEDS: CHLORPROMAZINE HCL 50 MG TABLET PO SCH ×3 (01:46→17:23)
[2018-05-07] MEDS: OLANZAPINE 5 MG TABLET PO SCH ×2 (09:11→17:23)
[2018-05-07] MEDS: BENZTROPINE MESYLATE 1 MG TABLET PO SCH (09:11)
--- NOTE | 2018-05-07 10:50 | ER Document Report ---
Doctor's Note Notes: 05/07/18 10:49 Rounds: Chart reviewed and patient interviewed. Patient being evaluated for acute psychosis. He is believed to have schizophrenia. Here under IVC. Lab studies were all essentially normal. Vital signs are all normal. Patient appears to be medically stable for transfer or discharge. Temi Esquivel MD
[2018-05-08] MEDS: CHLORPROMAZINE HCL 50 MG TABLET PO SCH ×3 (02:00→18:03)
[2018-05-08] MEDS: BENZTROPINE MESYLATE 1 MG TABLET PO SCH (09:16)
[2018-05-08] MEDS: OLANZAPINE 5 MG TABLET PO SCH ×2 (09:16→18:02)
--- NOTE | 2018-05-08 10:19 | ER Document Report ---
Doctor's Note Notes: 05/08/18 10:18 The patient is sitting up in bed watching TV, he is in quite good spirits. He is reporting that he is doing much better today and is excited about being discharged home. He reports when he first came in here 3 days ago he was "having some outbursts". He states that does not occur very often, and states that he was not suicidal. He is waiting for reevaluation by [facility] to determine if he will go home today.
--- NOTE | 2018-05-08 13:08 | PSYCHOLOGICAL NOTE ---
Psych Note - Psych Note Psych Note: Reason for Consult: abnormal behaviour 22-year-old male brought here by the wildfire prevention specialist's office for "suicidal ideations, cursing out bystanders, lasting 1 minute, thinking he is dying, and refusing to take treatment for possible bipolar or schizophrenia" per the IVC paperwork filled out by his mother. The patient denies all of this. He denies SI HI hallucinations Clinician conducted checking with patient Patient was again calm and very polite with clinician. Patient discussed with clinician that he feels his outbursts when angry are "not the same as other people." Patient confirms he thinks that the medication is helping him. Attending nurse and [facility] staff informed clinician that the patient came out of his room later in the day and stated "I have it all figured out." He then proceeded to explain to everybody in the area that he was not going to let the devil trick him anymore and started dancing in the hallway. Medication recommendations per [facility]'s contracted psychiatrist Dr. Kwesi HUGHES are as follows 1. Zyprexa 5 mg twice daily 2. Cogentin 2 mg daily 3. Thorazine 50 mg every 8 hours 298.9 (F29) unspecified schizophrenia spectrum and other psychotic disorder per history Impression\\plan: Patient is recommended to continue under IVC. Patient was originally very calm, cooperative and polite upon his arriveal to [facility] ED; however, patient immediately flipped when speaking with clinician the second time. Patient accused the clinician of knowing some unknown information related to his [facility] ED visit last Friday (05/01/2018) and started to verbally threaten the clinician stating; "you better watch out... I am God's favorite... you better watch yourself." Patient was unable to be redirected started yelling and screaming and was very fixated on amish beliefs. Medication intervention was needed. Last night chart review indicates the patient has another event of flipping his presentation when taking evening mediations. Patient is currently calm and cooperative. Dr. Guadarrama was consulted and the care management this patient; attending physician is in agreement with recommendations and disposition.
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
--- NOTE | 2018-05-09 08:37 | PSYCHOLOGICAL NOTE ---
Psych Note - Psych Note Psych Note: Reason for Consult: abnormal behaviour Kana, father, 22-year-old male brought here by the customer care manager's office for "suicidal ideations, cursing out bystanders, lasting 1 minute, thinking he is dying, and refusing to take treatment for possible bipolar or schizophrenia" per the IVC paperwork filled out by his mother. The patient denies all of this. He denies SI HI hallucinations Clinician conducted checking with patient Patient was again calm and very polite with clinician. Patient discussed feeling "really good.... much better." He disclosed that he does not remember ever having feeling this good in the past. He openly discussed why he became upset when speaking with his grandma the other day and stated that "they went through my room and read my journal... I think you have it now... I did not think they should be able to go into my room and do that." He discloses that he knows that he is unable to return to his grandmother's home and has spoke with his father, Kana, who states that he can come and stay with him. He confirms that he wants to continue taking medicine stating that he did not know he would feel like this on the medication; "when I was a kid I was forced to take medicine and I could barely hold anything or function." Clinician attempted contact with patient's father, Kana; left message. Medication recommendations per [facility]'s contracted psychiatrist Dr. Kwesi HUGHES are as follows 1. Zyprexa 5 mg twice daily 2. Cogentin 2 mg daily 3. Thorazine 50 mg every 8 hours 296.40 (F31.9) bipolar 1 disorder; unspecified Impression\\plan: Patient is recommended for rescind of IVC and is considered cleared from acute psychiatric services. Patient has been able to control his anger outbursts and is considered at baseline. Patient has been very calm and cooperative and agrees to continue he needs to continue taking medications, stating he did not realize the medication would make him feel so much better. Patient is recommended to continue outpatient mental health services in both medication management and therapeutic services. Dr. Guadarrama was consulted and the care management this patient; attending physician is in agreement with recommendations and disposition.
[2018-05-09 11:51] VITALS: BP 118/72
== END 2018-05-09 09:40 | disposition home or self-care (01) ==
LOC: ER 12:43
DX: F31.9 Bipolar disorder, unspecified (principal); R45.851 Suicidal ideations; R00.0 Tachycardia, unspecified
CPT/HCPCS: 93005; 99285; 96372; 36415; 80307 ×4; 85025; 80053; 81001; 93010; J3230 ×2; J3490 ×3; J0515

== ENCOUNTER 2018-05-25 00:14 | Emergency (ER) | payer OTHER ==
--- NOTE | 2018-05-25 01:13 | ER Document Report ---
ED General - General Chief Complaint: Psych Problem Stated Complaint: IVC Time Seen by Provider: 05/25/18 00:36 Notes: Patient is a 22-year-old male who presents to the ER. He is not very forthcoming with exactly why he is here. Is very vague. He says that people worried that he has self destructive behaviors. At times he denies suicidal ideations and other times he says that they are possible. He tells me that he used to have an opiate addiction. He initially tells me that he has not used opiates in 4 months and then later on he asked me if I could treat him for opiate withdrawal. I informed him that I would like he did have opiate withdrawal if he does not use in several months and then he says "okay". Patient will not tell me what kind of recent inciting events have caused him to feel the way that he does. He again is very vague and not forthcoming and it is hard for me to get a history and understand exactly what is going on with him. Patient's mother took out involuntary commitment paperwork on him. In the paperwork and says that the patient has history of bipolar depression. He has had recent suicidal ideations and severe mood swings. Is been verbally violent. He supposed to be on several psychiatric medications which she has not been taking. He has been having delusions where he thinks he is God. TRAVEL OUTSIDE OF THE [place] IN LAST 30 DAYS: No - Related Data Allergies/Adverse Reactions: No Known Allergies Allergy (Verified 05/05/18 12:43) Past Medical History - Social History Smoking Status: Unknown if Ever Smoked Frequency of alcohol use: None Drug Abuse: Marijuana, Other - previous history opiate abuse Family History: Reviewed & Not Pertinent - Past Medical History Cardiac Medical History: Denies: Hx Heart Attack, Hx Hypertension Pulmonary Medical History: Denies: Hx Asthma Neurological Medical History: Denies: Hx Cerebrovascular Accident, Hx Seizures Renal/ Medical History: Denies: Hx Peritoneal Dialysis GI Medical History: Denies: Hx Hepatitis, Hx Hiatal Hernia, Hx Ulcer Psychiatric Medical History: Reports: Hx Bipolar Disorder, Hx Depression, Hx Schizophrenia Infectious Medical History: Denies: Hx Hepatitis Past Surgical History: Reports: Hx Oral Surgery, Hx Orthopedic Surgery - Left foot, Hx Tonsillectomy. Denies: Hx Open Heart Surgery, Hx Pacemaker - Immunizations Hx Diphtheria, Pertussis, Tetanus Vaccination: Yes Review of Systems - Review of Systems Notes: My Normal Review Basic REVIEW OF SYSTEMS: CONSTITUTIONAL : Denies fever, chills, or sweats. Denies recent illness. EENT: Denies eye, ear, throat, or mouth pain or symptoms. Denies nasal or sinus congestion. CARDIOVASCULAR: Denies chest pain. RESPIRATORY: Denies cough, cold, or chest congestion. Denies shortness of breath, difficulty breathing, or wheezing. GASTROINTESTINAL: Denies abdominal pain. Denies nausea, vomiting, or diarrhea. Denies constipation. Last BM: MUSCULOSKELETAL: Denies neck or back pain or joint pain or swelling. SKIN: Denies rash or skin lesions. NEUROLOGICAL: Has not been acting appropriately at home.. Denies headache. Denies weakness or paralysis or loss of use of either side. Denies problems with gait or speech. Denies sensory or motor loss. PSYCHIATRIC: History of depression and bipolar. ALL OTHER SYSTEMS REVIEWED AND NEGATIVE. Physical Exam - Notes Notes: General Appearance: Well nourished, alert, cooperative, no acute distress, no obvious discomfort. Well-appearing. Vitals: reviewed, See vital signs table. Head: no swelling or tenderness to the head Eyes: PERRL, EOMI, Conjuctiva clear Lungs: No wheezing, No rales, No rhonci, No accessory muscle use, good air exchange bilaterally. Heart: Normal rate, Regular rythm, No murmur, no rub Abdomen: Normal BS, soft, No rigidity, No abdominal tenderness, No guarding, no rebound, no abdominal masses, no organomegaly Extremities: strength 5/5 in all extremities, good pulses in all extremities, no swelling or tenderness in the extremities, no edema. Skin: warm, dry, appropriate color, no rash Neuro: speech clear, oriented x 3, odd affect, responds appropriately to most questions. Renal nerves II through XII are intact. Distal sensation intact. Patient moves all extremities without difficulty. Psychiatric: Odd affect. At times does not seem to know how to answer certain questions appropriately regards to why he is here why he is been feeling what he has. Admits to previous history of suicidal ideations. Course - EKG Interpretation by Me Additional EKG results interpreted by me: 05/25/18 01:15 EKG is reviewed and interpreted by me. EKG shows sinus rhythm with rate of [address] segment elevation or depression. No ischemic T-wave inversions. NV interval, QRS duration, QTc intervals are within normal range. Old EKG for comparison is from May 05, 2018.
[2018-05-25 01:18] LABS: ABSOLUTE BASOPHILS # (AUTO) 0.1 10^3/uL (0.0-0.2); ABSOLUTE EOSINOPHILS # (AUTO) 0.1 10^3/uL (0.0-0.6); ABSOLUTE LYMPHOCYTES (AUTO) 1.2 10^3/uL (0.5-4.7); ABSOLUTE MONOCYTES (AUTO) 0.5 10^3/uL (0.1-1.4); ABSOLUTE NEUT (AUTO) 5.9 10^3/uL (1.7-8.2); BASOPHILS % (AUTO) 0.7 % (0-2); EOSINOPHILS % (AUTO) 1.3 % (0-6); HEMATOCRIT 45.4 % (37.9-51.0); HEMOGLOBIN 15.4 g/dL (13.5-17.0); LYMPHOCYTES % (AUTO) 14.8 % (13-45); MEAN CORPUSCULAR HGB CONC 33.8 g/dL (32.0-36.0); MEAN CORPUSCULAR VOLUME 83 fl (80-97); MONOCYTES % (AUTO) 6.9 % (3-13); PLATELET COUNT 203 10^3/uL (150-450); RED BLOOD COUNT 5.49 10^6/uL (4.35-5.55); RED CELL DISTRIBUTION WIDTH 13.3 % (11.5-14.0); SEGMENTED NEUTROPHILS % (AUTO) 76.3 % (42-78); TOTAL CELLS COUNTED % (AUTO) 100 %; WHITE BLOOD COUNT 7.8 10^3/uL (4.0-10.5)
[2018-05-25 01:43] LABS: ALANINE AMINOTRANSFERASE 29 U/L (21-72); ALKALINE PHOSPHATASE 76 U/L (38-126); ANION GAP 17 (5-19); ASPARTATE AMINO TRANSFERASE 29 U/L (17-59); BILIRUBIN,DIRECT 0.3 mg/dL (0.0-0.4); BILIRUBIN,TOTAL 0.8 mg/dL (0.2-1.3); BLOOD UREA NITROGEN 14 mg/dL (7-20); CALCIUM 9.7 mg/dL (8.4-10.2); CARBON DIOXIDE 24 mmol/L (22-30); CHLORIDE 105 mmol/L (98-107); GLUCOSE 80 mg/dL (75-110); POTASSIUM 3.8 mmol/L (3.6-5.0); SODIUM 145.8 mmol/L (137-145)
[2018-05-25 01:46] LABS: ACETAMINOPHEN < 10 ug/mL (10-30); ALCOHOL < 10 mg/dL (NONE DETECTED); SALICYLATE < 1.0 mg/dL (2.0-20.0)
[2018-05-25 02:58] LABS: APPEARANCE,URINE SLIGHTLY-CLOUDY; BILIRUBIN,URINE NEGATIVE (NEGATIVE); GLUCOSE, URINE NEGATIVE (NEGATIVE); KETONES,URINE 80 mg/dL (NEGATIVE); LEUKOCYTE ESTERASE,URINE NEGATIVE (NEGATIVE); NITRITE,URINE NEGATIVE (NEGATIVE); PROTEIN,URINE 30 mg/dL (NEGATIVE); URINE SPECIFIC GRAVITY 1.027
[2018-05-25 02:59] LABS: COLOR,URINE YELLOW
[2018-05-25 03:09] LABS: URINE AMPHETAMINES SCREEN NEGATIVE; URINE BARBITURATES SCREEN UNCONFIRMED POSITIVE; URINE BENZODIAZEPINES SCREEN NEGATIVE; URINE COCAINE SCREEN NEGATIVE; URINE MARIJUANA (THC) SCREEN UNCONFIRMED POSITIVE; URINE METHADONE SCREEN UNCONFIRMED POSITIVE; URINE PHENCYCLIDINE SCREEN NEGATIVE
--- NOTE | 2018-05-25 10:06 | ER Document Report ---
Doctor's Note Notes: 05/25/18 10:05 As the rounding physician for our psychiatric patients, I have reviewed the chart, vitals, lab work. Patient has been examined and noted to be resting comfortably. I am awaiting mental health in put but I expect the patient to be set up for placement. Medically he is stable
--- NOTE | 2018-05-25 13:38 | PSYCHOLOGICAL NOTE ---
Psych Note - Psych Note Psych Note: Reason for Consult: Consent Permission: Pt present to ED with a c/c of suicidal ideation. Pt brought in by the bank teller machine mechanic department. Per the [facility] Schinder, per mother, reported the pt was missing and the pt has a hx of depression, severe mood swings, and suicidal ideations. Pt was found by bank teller machine mechanic department and brought to the ED. Per the bank teller machine mechanic pt is off of his medications. Upon assessment has outburst of laughter and has a hard time communicating his thoughts. Pt states that he has a hx drug use and opioid abuse. Pt denies using opioids recently. Patient is sitting on his bed and is currently calm. He reports he did not take his medications. When asked why, he stated "I felt" but did not continue his thought then stated "I didn't listen to you guys." He then stated "I was convinced" and again did not finish his sentence. After about a minute patient was able to state; "thought.... it.... was effecting my fellowship with God." Patient was noted to look as if he was going to start crying (this is the 3 third time during evaluation), clinician ask patient what he was thinking, if he was alright because he looked as if he would start crying. Patient maybe eye contacted and state "fine...I'm fine....I'm fine" and started to laugh. Patient is alert and oriented to person and place. Mood euthymic with liable affect (one moment looking as if he will burst into tears and the next he starts laughing, overall appears confused). Patient has chronic suicidal ideation. He denies homicidal ideation. Delusions of religiosity are noted and reported (patient is known to have somatic delusions also). Thought process is disorganized. Eye Contact is fair. Conversation speech demonstrates the patient 's disorganized thinking, unable to complete sentences and appears confused. Medication recommendations per [facility]'s contracted psychiatrist Dr. Kwesi HUGHES are as follows 1. Zyprexa 5 mg twice daily 2. Cogentin 2 mg daily 3. Thorazine 50 mg every 8 hours 296.44 (F31.2) Bipolar 1 with psychotic features History of Opioid abuse; believed to be secondary, used to self-medicate Impression\\plan: Patient is recommended to continue under IVC. Patient stopped taking his medication believing it is "effecting is fellowship with God." Patient has a history of substance abuse; however, it is believed it is secondary to his mental health which he had been self medicating. Patient currently has liable affect with disorganized thought processes. He is unable to effectively communicate his thoughts and frequently is unable to complete is sentences. Dr. Guadarrama was consulted on the care and management of this patient ; attending physician is in agreement with recommendations and disposition.
[2018-05-25] MEDS: CHLORPROMAZINE HCL 50 MG TABLET PO SCH ×2 (14:45→21:53)
[2018-05-25] MEDS: OLANZAPINE 5 MG TABLET PO SCH (18:40)
[2018-05-26] MEDS: CHLORPROMAZINE HCL 50 MG TABLET PO SCH ×3 (06:21→22:20)
[2018-05-26] MEDS: OLANZAPINE 5 MG TABLET PO SCH ×2 (09:43→17:35)
[2018-05-26] MEDS: BENZTROPINE MESYLATE 1 MG TABLET PO SCH (09:43)
--- NOTE | 2018-05-26 09:47 | ER Document Report ---
Doctor's Note Notes: 05/26/18 09:44 Rounds: Chart reviewed and patient interviewed. Patient being evaluated for having run out of his medications for bipolar disorder. Expressing depressed feelings and suicidal ideation. Patient says he is feeling much better this morning since he got a good night sleep. Vital signs were all essentially normal except for 1 blood pressure recording this morning of 93/62. Pulse rate normal. No medical reason for hypotension. Lab studies were positive on his drug screen for methadone and barbiturates and marijuana. Patient appears to be medically stable for transfer or discharge. Temi Esquivel MD
--- NOTE | 2018-05-26 10:03 | PSYCHOLOGICAL NOTE ---
Psych Note - Psych Note Psych Note: Reason for Consult:IVC Consent Permission:none given Pt present to ED with a c/c of suicidal ideation. Pt brought in by the rehabilitation tech department. Per the rehabilitation tech Schinder, per mother, reported the pt was missing and the pt has a hx of depression, severe mood swings, and suicidal ideations. Pt was found by rehabilitation tech department and brought to the ED. Per the rehabilitation tech pt is off of his medications. Upon assessment has outburst of laughter and has a hard time communicating his thoughts. Pt states that he has a hx drug use and opioid abuse. Pt denies using opioids recently. Clinician conducted check in with patient: Patient is calm and very polite. He reports he has no concerns. Patient appears to continue having difficulties finishing thoughts; however, there is improvement. Patient is noted to have odd affect ( appears to trying to hold back laughter) with minimal eye contact. It appears the patient is still responding to internal stimuli. Medication recommendations per [facility]'s contracted psychiatrist Dr. Kwesi HUGHES are as follows 1. Zyprexa 5 mg twice daily 2. Cogentin 2 mg daily 3. Thorazine 50 mg every 8 hours 296.44 (F31.2) Bipolar 1 with psychotic features History of Opioid abuse; believed to be secondary, used to self-medicate Impression\\plan: Patient is recommended to continue under IVC. Patient stopped taking his medication believing it is "effecting is fellowship with God." Patient has a history of substance abuse; however, it is believed it is secondary to his mental health which he had been self medicating. Patient appears to continue having difficulties finishing thoughts; however, there is improvement. Patient is noted to have odd affect ( appears to trying to hold back laughter) with minimal eye contact. It appears the patient is still responding to internal stimuli. Dr. Guadarrama was consulted on the care and management of this patient; attending physician is in agreement with recommendations and disposition.
--- NOTE | 2018-05-26 10:08 | EKG REPORT ---
SEVERITY:- OTHERWISE NORMAL ECG - SINUS RHYTHM BORDERLINE RIGHT AXIS DEVIATION ST ELEV, PROBABLE NORMAL EARLY REPOL PATTERN : Confirmed by: Va Bonner 26-May-2018 10:06:42
[2018-05-27] MEDS: CHLORPROMAZINE HCL 50 MG TABLET PO SCH (07:47)
--- NOTE | 2018-05-27 10:17 | ER Document Report ---
Doctor's Note Notes: 05/27/18 10:12 Rounds: Chart reviewed and patient interviewed. Patient says he is feeling better. Mental health has requested a medication change in the patient's Thorazine and Zyprexa will be discontinued. Patient will be started on Haldol 5 mg twice a day with the evening dose. Patient appears to be medically stable for transfer or discharge. Temi Esquivel MD
[2018-05-27] MEDS: BENZTROPINE MESYLATE 1 MG TABLET PO SCH (10:45)
--- NOTE | 2018-05-27 13:33 | PSYCHOLOGICAL NOTE ---
Psych Note - Psych Note Psych Note: Reason for Consult:IVC Consent Permission:patient's Step-father, Dr. Buchanan [phone] Pt present to ED with a c/c of suicidal ideation. Pt brought in by the prison psychiatrist department. Per the prison psychiatrist Schinder, per mother, reported the pt was missing and the pt has a hx of depression, severe mood swings, and suicidal ideations. Pt was found by prison psychiatrist department and brought to the ED. Per the prison psychiatrist pt is off of his medications. Upon assessment has outburst of laughter and has a hard time communicating his thoughts. Pt states that he has a hx drug use and opioid abuse. Pt denies using opioids recently. Clinician conducted check in with patient: Patient is calm and very polite. He reports he has no concerns. Patient is noted to be sitting in his room with the lights off. She has not attempted to turn them on all day. Patient provided consent to speak with is step father. He demonstrated improvement in making a decision; however, it took the patient a significant amount of time to decide consent permission. Patient is still not completing all of his thoughts. Behavior health team contacted patient's stepfather to provide update on patient 's treatment plan. Medication recommendations per [facility]'s contracted psychiatrist Dr. Kwesi HUGHES are as follows 1. Please discontinue Zyprexa 5 mg twice daily 2. Please discontinue Thorazine 50 mg every 8 hours 3. Please continue Cogentin 2 mg daily 4. Please start Haldol 5mg twice daily 296.44 (F31.2) Bipolar 1 with psychotic features History of Opioid abuse; believed to be secondary, used to self-medicate Impression\\plan: Patient is recommended to continue under IVC. Patient stopped taking his medication believing it is "effecting is fellowship with God." Patient has a history of substance abuse; however, it is believed it is secondary to his mental health which he had been self medicating. Patient appears to continue having difficulties finishing thoughts; however, there is improvement. Updated medication recommendation have been provided; if the patient does well on the new recommendations, tomorrow the patient will receive a Haldol Decanoate shot. Dr. Guadarrama was consulted on the care and management of this patient; attending physician is in agreement with recommendations and disposition.
[2018-05-27] MEDS: HALOPERIDOL 5 MG TABLET PO SCH (18:22)
[2018-05-28 06:58] VITALS: BP 128/71
[2018-05-28] MEDS ORDERED: HALOPERIDOL DECANOATE INJ 100 MG/1 ML VIAL IM ONE (09:22)
[2018-05-28] MEDS: BENZTROPINE MESYLATE 1 MG TABLET PO SCH (09:34)
[2018-05-28] MEDS: HALOPERIDOL 5 MG TABLET PO SCH (09:34)
--- NOTE | 2018-05-28 10:27 | ER Document Report ---
Doctor's Note Notes: 05/28/18 10:26 Patient resting comfortably on stretcher, reports feeling much better today, denies any suicidal or homicidal ideation, plan is for patient to be discharged after her he received a Haldol Decanoate injection, patient is in agreement with this plan, medically stable for discharge Discharge - Discharge Clinical Impression: Severe manic bipolar 1 disorder with psychotic behavior Additional Instructions: Bipolar Disorder Bipolar disorder is also called manic-depressive disorder. Depression alternates with brain hyperactivity called collins. Each phase lasts from several days to a few weeks. We don't know exactly what causes bipolar disorder , but it's treatable. During the "manic phase," you may feel elated and energetic. You may have racing thoughts, rapid speech, increased activity, and grandiose ideas. During this time, you may not realize how poor your judgement is. Inappropriate spending, drug abuse, excessive alcohol use, marriage problems, and irresponsible sexual behavior are common during the manic phase. During the "depressive phase," you might feel depressed, guilty, worthless , fatigued, and unable to concentrate. You might have thoughts of suicide. Good treatments are available for bipolar disorder. [place] is a classic drug for bipolar disorder, and is still often useful. If the manic phase is very mild, an antidepressant alone can be prescribed. If the manic phase is very severe, an antipsychotic medicine (such as Haldol) may be needed. The treatment must be matched to your symptoms, so it's important to work closely with your psychiatric care provider. Contact your physician, the hospital emergency center, crisis line, or your counsellor if you are losing control or having self-destructive thoughts. Please follow up with [facility] for your continued mental health services upon discharge. AT ANY TIME, IF YOUR SYMPTOMS CHANGE SIGNIFICANTLY OR WORSEN OR YOU DEVELOP NEW SYMPTOMS, RETURN TO THE EMERGENCY DEPARTMENT IMMEDIATELY FOR RE-EVALUATION. Prescriptions: Benztropine Mesylate [Cogentin 1 mg Tablet] 1 tab PO BID #14 tab Haloperidol [Haldol 5 mg Tablet] 5 mg PO DAILY #7 tablet Referrals: [facility] [Outside] - 05/28/18 [facility] [Outside] - Follow up as needed
--- NOTE | 2018-05-29 13:24 | PSYCHOLOGICAL NOTE ---
Psych Note - Psych Note Psych Note: Reason for Consult:IVC Consent Permission:patient's Step-father, Dr. Buchanan [phone] Pt present to ED with a c/c of suicidal ideation. Pt brought in by the [facility] former [facility] department. Per the spring former hand Schinder, per mother, reported the pt was missing and the pt has a hx of depression, severe mood swings, and suicidal ideations. Pt was found by [facility] former hand department and brought to the ED. Per the spring former hand pt is off of his medications. Upon assessment has outburst of laughter and has a hard time communicating his thoughts. Pt states that he has a hx drug use and opioid abuse. Pt denies using opioids recently. Clinician conducted check in with patient: Patient is calm and very polite. Patient is sitting in his bed, with the light and TV on, can conduct organized and linear conversations and is no longer appearing confused. Patient no longer is demonstrating delayed thought processes and engages appropriately in conversations. Patient confirms he would like to go home and states that he will continue to take his medications. Behavior health team contacted patient's stepfather to provide update on patient 's treatment plan. Medication recommendations per [facility]'s contracted psychiatrist Dr. Kwesi HUGHES are as follows 1. Cogentin 2 mg daily 2. Haldol 5mg twice daily 3. Haldol Decanoate 100mg IM once Diagnosis 296.44 (F31.2) Bipolar 1 with psychotic features History of Opioid abuse; believed to be secondary, used to self-medicate Impression\plan: Patient is recommended for rescind of IVC and is cleared from acute psychiatric services. Patient has demonstrated significant improvement and is now engaging appropriately with clinician and [facility] staff. Patient is sitting in his bed, with the light and TV on, can conduct organized and linear conversations and is no longer appearing confused. He maintains eye contact and is not demonstrating behaviours indicating his is responding to internal stimuli. Patient is a history of noncompliance with taking medications so today received a Haldol Decanoate shot that last 3-[address] Guadarrama was consulted on the care and management of this patient; attending physician is in agreement with recommendations and disposition.
== END 2018-05-28 11:45 | disposition home or self-care (01) ==
LOC: ER 00:14
DX: F31.2 Bipolar disorder, current episode manic severe with psychotic features (principal); T50.906A Underdosing of unspecified drugs, medicaments and biological substances, initial encounter; Z91.128 Patient's intentional underdosing of medication regimen for other reason; Z91.14 Patient's other noncompliance with medication regimen; R45.851 Suicidal ideations; F12.10 Cannabis abuse, uncomplicated
CPT/HCPCS: 93005; 99285; 96372; 36415; 80307 ×4; 85025; 80053; 81001; 93010; J3490 ×3; J1631

== ENCOUNTER 2018-06-05 15:21 | Emergency (ER) | payer OTHER ==
[2018-06-05 15:26] VITALS: BP 131/76
--- NOTE | 2018-06-05 15:28 | ER Document Report ---
HPI - HPI Patient complains to provider of: Medication refill Pain Level: Denies Context: 22-year-old who was recently diagnosed with bipolar-manic and was IVC'd twice recently and [facility] is needing more benztropine and Haldol his appointment at [facility] is Friday at 10. He has 1 5 mg Haldol left and he takes that daily. He has 3 benztropine 1 mg left and that is twice daily. Feels slightly anxious but is calm. Vital signs are stable. He is here in the emergency department with his mother and he is living with her and she states that his mood is stable at home. Associated Symptoms: None Exacerbated by: Denies Relieved by: Denies Similar symptoms previously: Yes Recently seen / treated by doctor: Yes - ROS ROS below otherwise negative: Yes Systems Reviewed and Negative: Yes All other systems reviewed and negative - REPRODUCTIVE Reproductive: DENIES: : Past Medical History - General Information source: Patient - Social History Smoking Status: Current Every Day Smoker Frequency of alcohol use: None Drug Abuse: None Lives with: Parents - Mother Family History: Reviewed & Not Pertinent Renal/ Medical History: Denies: Hx Peritoneal Dialysis Psychiatric Medical History: Reports: Hx Bipolar Disorder, Hx Depression, Hx Schizophrenia Past Surgical History: Reports: Hx Oral Surgery, Hx Orthopedic Surgery - Left foot, Hx Tonsillectomy - Immunizations Hx Diphtheria, Pertussis, Tetanus Vaccination: Yes Vertical Provider Document - CONSTITUTIONAL Agree With Documented VS: Yes Exam Limitations: No Limitations - INFECTION CONTROL TRAVEL OUTSIDE OF THE [place] IN LAST 30 DAYS: No - HEENT HEENT: Normocephalic - NECK Neck: Supple - RESPIRATORY Respiratory: Breath Sounds Normal, No Respiratory Distress - CARDIOVASCULAR Cardiovascular: Regular Rate, Regular Rhythm - NEURO Level of Consciousness: Alert, Appropriate Course - Vital Signs Vital signs: Temp Pulse Resp BP Pulse Ox 98.0 F 100 16 131/76 H 98 06/05/18 15:25 06/05/18 15:25 06/05/18 15:25 06/05/18 15:25 06/05/18 15:25 Discharge - Discharge Clinical Impression: Bipolar 1 disorder Condition: Good Disposition: HOME, SELF-CARE Instructions: Bipolar Disorder ([facility]) Additional Instructions: See [facility] on Friday at 10:00 as planned Return to the emergency room any concerns Prescriptions: Benztropine Mesylate [Cogentin 1 mg Tablet] 1 tab PO BID #6 tab Haloperidol [Haldol 5 mg Tablet] 5 mg PO DAILY #3 tablet
== END 2018-06-05 15:50 | disposition home or self-care (01) ==
LOC: ER 15:21
DX: Z76.0 Encounter for issue of repeat prescription (principal); F31.9 Bipolar disorder, unspecified; Z79.899 Other long term (current) drug therapy; F17.200 Nicotine dependence, unspecified, uncomplicated
CPT/HCPCS: 99281

== ENCOUNTER 2018-06-07 16:51 | Emergency (ER) | payer OTHER ==
[2018-06-07] MEDS ORDERED: HALOPERIDOL 5 MG TABLET PO ONE (17:32)
[2018-06-07] MEDS ORDERED: BENZTROPINE MESYLATE 1 MG TABLET PO ONE (17:32)
--- NOTE | 2018-06-07 17:40 | ER Document Report ---
ED Psych Disorder / Suicide - General Mode of Arrival: Ambulatory Information source: Patient TRAVEL OUTSIDE OF THE [place] IN LAST 30 DAYS: No - HPI Patient complains to provider of: Other - Argument with mother Onset: Just prior to arrival Onset was: Sudden Quality of pain: No pain Severity: None Pain Level: Denies Suicide Risk Factors: Bipolar, Other mental health dx. Situational problems related to: Parent Overdose of: No: Acetominophen, Alcohol, Anticholinergic, Anti-depressants, Benzodiazepine, Salicylate, Tricyclic Antidepressant, Other Injury to: No: Generalized, Abdomen, Ankle, Back, Breast, Buttocks, Chest, Elbow , Epigastric, Flank, Face, Finger, Foot, Hand, Head, Hip, Knee, Leg, Lower extremity, Mouth, Neck, Pelvic, Penis, Perineum, Rectum, Shoulder, Testicle, Thigh, Throat, Trunk, Upper extremity, Vagina, Wrist Normal mood: Yes Similar symptoms previously: No Recently seen / treated by doctor: No <ROQUE SIDHU - Last Filed: 06/07/18 17:45> <TAYLOR MCLEAN - Last Filed: 06/08/18 08:48> <JACQUELYN HORTA - Last Filed: 06/08/18 09:08> - General Chief Complaint: Psych Problem Stated Complaint: PSYCH EVAL Time Seen by Provider: 06/07/18 17:30 Notes: This is a 22-year-old man with bipolar affective disorder and opiate dependence who is brought into the emergency room by the auto battery builder after he got into an argument with his mother at home today. The patient has recently been evaluated in the emerge from about a week and a half ago. He does have an appointment with [facility] tomorrow at 10 AM. The patient is calm and cooperative in triage. He denies any homicidal or suicidal ideation. He denies any auditory hallucinations. He states that he got in an argument with his mother because he feels like he does not have much autonomy. He does admit that he was planning on buying some drugs this evening. The is in triage and he reinforces that there was no physical altercation and that the altercation tonight was verbal only. I have been unable to get a hold of the patient's mother (Priya Tony: ) I did speak to the patient's stepfather ([phone]) who states that the patient has significant mood swings and is very difficult to control at times. ( ROQUE SIDHU) - Related Data Allergies/Adverse Reactions: No Known Allergies Allergy (Verified 05/05/18 12:43) Past Medical History - General Information source: Patient - Social History Smoking Status: Current Some Day Smoker Cigarette use (# per day): Yes - Half a pack per day Chew tobacco use (# tins/day): No Frequency of alcohol use: None Drug Abuse: Heroin, Prescription drugs Lives with: Family Family History: Reviewed & Not Pertinent Patient has suicidal ideation: No Patient has homicidal ideation: No - Past Medical History Cardiac Medical History: Denies: Hx Heart Attack, Hx Hypertension Pulmonary Medical History: Denies: Hx Asthma Neurological Medical History: Denies: Hx Cerebrovascular Accident, Hx Seizures Renal/ Medical History: Denies: Hx Peritoneal Dialysis GI Medical History: Denies: Hx Hepatitis, Hx Hiatal Hernia, Hx Ulcer Psychiatric Medical History: Reports: Hx Bipolar Disorder, Hx Depression, Hx Schizophrenia Infectious Medical History: Denies: Hx Hepatitis Past Surgical History: Reports: Hx Oral Surgery, Hx Orthopedic Surgery - Left foot, Hx Tonsillectomy. Denies: Hx Open Heart Surgery, Hx Pacemaker - Immunizations Hx Diphtheria, Pertussis, Tetanus Vaccination: Yes <ROQUE SIDHU - Last Filed: 06/07/18 17:45> Review of Systems - Review of Systems Constitutional: denies: Chills, Fever EENT: No symptoms reported Cardiovascular: denies: Chest pain, Palpitations, Heart racing Respiratory: denies: Cough, Short of breath, Wheezing Gastrointestinal: No symptoms reported Genitourinary: No symptoms reported Male Genitourinary: No symptoms reported Musculoskeletal: No symptoms reported Skin: No symptoms reported Hematologic/Lymphatic: No symptoms reported Neurological/Psychological: See HPI <ROQUE SIDHU - Last Filed: 06/07/18 17:45> Physical Exam <ROQUE SIDHU - Last Filed: 06/07/18 17:45> <TAYLOR MCLEAN - Last Filed: 06/08/18 08:48> <JACQUELYN HORTA - Last Filed: 06/08/18 09:08> - Vital signs Vitals: Temp Pulse Resp BP Pulse Ox 99.2 F 81 16 113/73 98 06/07/18 17:12 06/07/18 17:12 06/07/18 17:12 06/07/18 17:12 06/07/18 17:12 Notes: Physical exam: GENERAL: 22-year-old man, alert and oriented 3, no acute distress HEAD: Atraumatic, normocephalic. EYES: Pupils equal round and reactive to light, extraocular movements intact, sclera anicteric, conjunctiva are normal. ENT: TMs normal, nares patent, oropharynx clear without exudates. Moist mucous membranes. NECK: Normal range of motion, supple without obvious mass or JVD. LUNGS: Breath sounds clear to auscultation bilaterally and equal. No wheezes rales or rhonchi. HEART: Regular rate and rhythm without murmurs, rubs or gallops. ABDOMEN: Soft, normoactive bowel sounds. No tenderness to palpation. No guarding, no rebound. No masses appreciated. EXTREMITIES: Normal range of motion, no pitting or edema. No clubbing or cyanosis. NEUROLOGICAL: Cranial nerves II through XII grossly intact. Normal speech, moving all extremities. PSYCH: Normal mood, normal affect. Denies suicidal or homicidal ideations. SKIN: Warm, Dry, normal turgor, no rashes or lesions noted. (ROQUE SIDHU) Course <ROQUE SIDHU - Last Filed: 06/07/18 17:45> - Laboratory Result Diagrams: 06/07/18 17:54 06/07/18 17:54 <TAYLOR MCLEAN - Last Filed: 06/08/18 08:48> - Laboratory Result Diagrams: 06/07/18 17:54 06/07/18 17:54 <JACQUELYN HORTA - Last Filed: 06/08/18 09:08> - Re-evaluation Re-evalutation: 06/07/18 17:50 I discussed the home situation with the who was at the scene. I have spoken to the patient's stepfather. I have spoken to the psychiatric tech this evening and the plan will be to hold the patient overnight and have him reassessed first thing in the morning. If he is stable (psychiatrically) for discharge, he can make his 10 AM appointment at [facility]. Either way, he will be reassessed in the morning here in the ER. I have let the stepfather know of the above plan. (ROQUE SIDHU) 06/08/18 09:08 Patient reevaluated is appropriate will be discharged home today to go to appointment at 10 AM at [facility]. See additional notes provided with Dr. Jacquelyn Horta D.O. and psychology Level Billing Dr. Jacquelyn Horta D.O. (JACQUELYN HORTA) - Vital Signs Vital signs: Temp Pulse Resp BP Pulse Ox 97.3 F 66 14 113/68 98 06/08/18 06:47 06/08/18 06:47 06/08/18 06:47 06/08/18 06:47 06/08/18 06:47 - Laboratory Laboratory results interpreted by me: 06/07/18 06/07/18 06/07/18 17:54 17:54 17:54 RBC 5.59 H Sodium 145.3 H Carbon Dioxide 32 H Urine Ascorbic Acid 40 H Salicylates < 1.0 L Acetaminophen < 10 L Discharge <ROQUE SIDHU - Last Filed: 06/07/18 17:45> <TAYLOR MCLEAN - Last Filed: 06/08/18 08:48> <JACQUELYN HORTA - Last Filed: 06/08/18 09:08> - Discharge Clinical Impression: Bipolar affective disorder, Argumentative behavior Condition: Stable Disposition: HOME, SELF-CARE Additional Instructions: You have been evaluated by both the medical and mental health teams and are determined appropriate for discharge. Please follow up at your previously scheduled appointment with [facility] today at 10am. Bipolar Disorder Bipolar disorder is also called manic-depressive disorder. Depression alternates with brain hyperactivity called collins. Each phase lasts from several days to a few weeks. We don't know exactly what causes bipolar disorder , but it's treatable. During the "manic phase," you may feel elated and energetic. You may have racing thoughts, rapid speech, increased activity, and grandiose ideas. During this time, you may not realize how poor your judgement is. Inappropriate spending, drug abuse, excessive alcohol use, marriage problems, and irresponsible sexual behavior are common during the manic phase. During the "depressive phase," you might feel depressed, guilty, worthless , fatigued, and unable to concentrate. You might have thoughts of suicide. Good treatments are available for bipolar disorder. [place] is a classic drug for bipolar disorder, and is still often useful. If the manic phase is very mild, an antidepressant alone can be prescribed. If the manic phase is very severe, an antipsychotic medicine (such as Haldol) may be needed. The treatment must be matched to your symptoms, so it's important to work closely with your psychiatric care provider. Contact your physician, the hospital emergency center, crisis line, or your counsellor if you are losing control or having self-destructive thoughts. AT ANY TIME, IF YOUR SYMPTOMS CHANGE SIGNIFICANTLY OR WORSEN OR YOU DEVELOP NEW SYMPTOMS, RETURN TO THE EMERGENCY DEPARTMENT IMMEDIATELY FOR RE-EVALUATION. Referrals: [facility] [Outside] - 06/08/18 10:00 am
[2018-06-07 18:15] LABS: ABSOLUTE BASOPHILS # (AUTO) 0.1 10^3/uL (0.0-0.2); ABSOLUTE EOSINOPHILS # (AUTO) 0.4 10^3/uL (0.0-0.6); ABSOLUTE LYMPHOCYTES (AUTO) 1.5 10^3/uL (0.5-4.7); ABSOLUTE MONOCYTES (AUTO) 0.5 10^3/uL (0.1-1.4); ABSOLUTE NEUT (AUTO) 4.8 10^3/uL (1.7-8.2); BASOPHILS % (AUTO) 0.7 % (0-2); EOSINOPHILS % (AUTO) 5.6 % (0-6); HEMATOCRIT 46.6 % (37.9-51.0); HEMOGLOBIN 15.8 g/dL (13.5-17.0); LYMPHOCYTES % (AUTO) 21.2 % (13-45); MEAN CORPUSCULAR HEMOGLOBIN 28.3 pg (27.0-33.4); MEAN CORPUSCULAR VOLUME 83 fl (80-97); MONOCYTES % (AUTO) 6.5 % (3-13); PLATELET COUNT 218 10^3/uL (150-450); RED BLOOD COUNT 5.59 10^6/uL (4.35-5.55); RED CELL DISTRIBUTION WIDTH 13.8 % (11.5-14.0); TOTAL CELLS COUNTED % (AUTO) 100 %; WHITE BLOOD COUNT 7.3 10^3/uL (4.0-10.5)
[2018-06-07 18:20] LABS: APPEARANCE,URINE SLIGHTLY-CLOUDY; BILIRUBIN,URINE NEGATIVE (NEGATIVE); COLOR,URINE AMBER; GLUCOSE, URINE NEGATIVE (NEGATIVE); KETONES,URINE NEGATIVE (NEGATIVE); LEUKOCYTE ESTERASE,URINE NEGATIVE (NEGATIVE); NITRITE,URINE NEGATIVE (NEGATIVE); PROTEIN,URINE NEGATIVE (NEGATIVE); URINE SPECIFIC GRAVITY 1.025; UROBILINOGEN,URINE NEGATIVE mg/dL (<2.0)
--- NOTE | 2018-06-07 18:32 | EKG REPORT ---
SEVERITY:- OTHERWISE NORMAL ECG - SINUS RHYTHM BORDERLINE RIGHT AXIS DEVIATION ST ELEV, PROBABLE NORMAL EARLY REPOL PATTERN : Confirmed by: Gavi Paulson MD 07-Jun-2018 18:31:47
[2018-06-07 18:33] LABS: ACETAMINOPHEN < 10 ug/mL (10-30); ALANINE AMINOTRANSFERASE 28 U/L (21-72); ALBUMIN 4.8 g/dL (3.5-5.0); ALCOHOL < 10 mg/dL (NONE DETECTED); ALKALINE PHOSPHATASE 77 U/L (38-126); ANION GAP 12 (5-19); ASPARTATE AMINO TRANSFERASE 33 U/L (17-59); BILIRUBIN,DIRECT 0.2 mg/dL (0.0-0.4); BILIRUBIN,TOTAL 0.3 mg/dL (0.2-1.3); BLOOD UREA NITROGEN 12 mg/dL (7-20); CALCIUM 9.7 mg/dL (8.4-10.2); CARBON DIOXIDE 32 mmol/L (22-30); CHLORIDE 101 mmol/L (98-107); GLUCOSE 95 mg/dL (75-110); POTASSIUM 4.5 mmol/L (3.6-5.0); SALICYLATE < 1.0 mg/dL (2.0-20.0); SODIUM 145.3 mmol/L (137-145); TOTAL PROTEIN 8.2 g/dL (6.3-8.2); URINE AMPHETAMINES SCREEN NEGATIVE; URINE BARBITURATES SCREEN NEGATIVE; URINE BENZODIAZEPINES SCREEN NEGATIVE; URINE COCAINE SCREEN NEGATIVE; URINE MARIJUANA (THC) SCREEN UNCONFIRMED POSITIVE; URINE METHADONE SCREEN NEGATIVE; URINE PHENCYCLIDINE SCREEN NEGATIVE
--- NOTE | 2018-06-07 18:48 | ER Document Report ---
ED General - General Mode of Arrival: Ambulatory TRAVEL OUTSIDE OF THE [place] IN LAST 30 DAYS: No <JUDE MCGREGOR - Last Filed: 06/07/18 22:23> <NAOMY ZALDIVAR - Last Filed: 06/08/18 02:04> <ALCONJACQUELYN Shira - Last Filed: 06/08/18 09:07> - General Chief Complaint: Psych Problem Stated Complaint: PSYCH EVAL Time Seen by Provider: 06/07/18 17:30 Notes: 22 y.o male with bipolar affective disorder, schizophrenia and opiate dependence was brought into the ED by the deputy sheriff lieutenant after getting into an argument with his mother a home today. Pt reports that he lives in a house that his mother gave to him and in which she now lives in with him. He states that he got in a fight with her because he wanted a free moment to go out tonight to get "a mild amount of opiates" but she was not wanting him to go. Pt reports that he has been stressed out lately and that is why he wants to take opiates. He denies any HI, SI or auditory hallucinations. Pt has been IVC'd here twice in the past month. He was last seen here two days ago and was given a Rx for Haldol to last him until his appointment [facility] tomorrow at 10:00am. (JUDE MCGREGOR) - Related Data Allergies/Adverse Reactions: No Known Allergies Allergy (Verified 05/05/18 12:43) Past Medical History - General Information source: Patient - Social History Smoking Status: Current Some Day Smoker Cigarette use (# per day): Yes - Half a pack per day Chew tobacco use (# tins/day): No Frequency of alcohol use: None Drug Abuse: Heroin, Prescription drugs Occupation: unemployed Lives with: Family Family History: Reviewed & Not Pertinent Patient has suicidal ideation: No Patient has homicidal ideation: No Psychiatric Medical History: Reports: Hx Bipolar Disorder, Hx Depression, Hx Schizophrenia Past Surgical History: Reports: Hx Oral Surgery, Hx Orthopedic Surgery - Left foot, Hx Tonsillectomy - Immunizations Hx Diphtheria, Pertussis, Tetanus Vaccination: Yes <JUDE MCGREGOR - Last Filed: 06/07/18 22:23> Review of Systems - Review of Systems Constitutional: No symptoms reported EENT: No symptoms reported Cardiovascular: No symptoms reported Respiratory: No symptoms reported Gastrointestinal: No symptoms reported Genitourinary: No symptoms reported Male Genitourinary: No symptoms reported Musculoskeletal: No symptoms reported Skin: No symptoms reported Hematologic/Lymphatic: No symptoms reported Neurological/Psychological: See HPI. denies: Hallucinations, Homicidal ideation , Suicidal ideation -: Yes All other systems reviewed and negative <JUDE MCGREGOR - Last Filed: 06/07/18 22:23> Physical Exam <JUDE MCGREGOR - Last Filed: 06/07/18 22:23> <NAOMY ZALDIVAR - Last Filed: 06/08/18 02:04> <JACQUELYN HORTA - Last Filed: 06/08/18 09:07> - Vital signs Vitals: Temp Pulse Resp BP Pulse Ox 99.2 F 81 16 113/73 98 06/07/18 17:12 06/07/18 17:12 06/07/18 17:12 06/07/18 17:12 06/07/18 17:12 - Notes Notes: Physical Exam: General: Alert, appears well. HEENT: Normocephalic. Atraumatic. PERRL. Extraocular movements intact. Oropharynx clear. Neck: Supple. Non-tender. Respiratory: No respiratory distress. Clear and equal breath sounds bilaterally. Cardiovascular: Regular rate and rhythm. Abdominal: Normal Inspection. Non-tender. No distension. Normal Bowel Sounds. Back: Non-tender. No deformity or step off. Extremities: Moves all four extremities. Upper extremities: Normal inspection. Normal ROM. Lower extremities: Normal inspection. No edema. Normal ROM. Neurological: Normal cognition. AAOx3. Normal speech. Psychological: Normal affect. Normal Mood. Skin: Warm. Dry. Normal color. (JUDE MCGREGOR) Course - Laboratory Result Diagrams: 06/07/18 17:54 06/07/18 17:54 <JUDE MCGREGOR - Last Filed: 06/07/18 22:23> - Laboratory Result Diagrams: 06/07/18 17:54 06/07/18 17:54 <NAOMY ZALDIVAR - Last Filed: 06/08/18 02:04> - Laboratory Result Diagrams: 06/07/18 17:54 06/07/18 17:54 <JACQUELYN HORTA - Last Filed: 06/08/18 09:07> - Re-evaluation Re-evalutation: 06/08/18 09:05 Behavior towards mother. Patient has a history of drug abuse in the past. Patient was in his argument getting more prescription opiates. Escalated. While in apartment patient is appropriate with all of us. Patient evaluated by psychology. They recommend discharge home. Patient has an appointment today at 10 AM at [facility]. Patient is now clean and sober for the last several days. Physical exam General well-appearing man in no acute distress, HEENT, unremarkable, respiratory, lungs clear to auscultation bilaterally, cardiac, regular rate and rhythm no murmurs Abdomen: Soft negative Bennett's Muscular skeletal, no obvious deformities. Psych, appropriate affect, neurology, shoulder shrug neck other cranial nerves grossly intact. Level billing Dr. Jacquelyn Horta D.OTanvir (JACQUELYN HORTA) - Vital Signs Vital signs: Temp Pulse Resp BP Pulse Ox 97.3 F 66 14 113/68 98 06/08/18 06:47 06/08/18 06:47 06/08/18 06:47 06/08/18 06:47 06/08/18 06:47 - Laboratory Laboratory results interpreted by me: 06/07/18 06/07/18 06/07/18 17:54 17:54 17:54 RBC 5.59 H Sodium 145.3 H Carbon Dioxide 32 H Urine Ascorbic Acid 40 H Salicylates < 1.0 L Acetaminophen < 10 L Discharge <JUDE MCGREGOR - Last Filed: 06/07/18 22:23> <NAOMY ZALDIVAR - Last Filed: 06/08/18 02:04> <JACQUELYN HORTA P - Last Filed: 06/08/18 09:07> - Discharge Clinical Impression: Bipolar affective disorder, Argumentative behavior Condition: Stable Disposition: HOME, SELF-CARE Additional Instructions: You have been evaluated by both the medical and mental health teams and are determined appropriate for discharge. Please follow up at your previously scheduled appointment with [facility] today at 10am. Bipolar Disorder Bipolar disorder is also called manic-depressive disorder. Depression alternates with brain hyperactivity called collins. Each phase lasts from several days to a few weeks. We don't know exactly what causes bipolar disorder , but it's treatable. During the "manic phase," you may feel elated and energetic. You may have racing thoughts, rapid speech, increased activity, and grandiose ideas. During this time, you may not realize how poor your judgement is. Inappropriate spending, drug abuse, excessive alcohol use, marriage problems, and irresponsible sexual behavior are common during the manic phase. During the "depressive phase," you might feel depressed, guilty, worthless , fatigued, and unable to concentrate. You might have thoughts of suicide. Good treatments are available for bipolar disorder. [place] is a classic drug for bipolar disorder, and is still often useful. If the manic phase is very mild, an antidepressant alone can be prescribed. If the manic phase is very severe, an antipsychotic medicine (such as Haldol) may be needed. The treatment must be matched to your symptoms, so it's important to work closely with your psychiatric care provider. Contact your physician, the hospital emergency center, crisis line, or your counsellor if you are losing control or having self-destructive thoughts. AT ANY TIME, IF YOUR SYMPTOMS CHANGE SIGNIFICANTLY OR WORSEN OR YOU DEVELOP NEW SYMPTOMS, RETURN TO THE EMERGENCY DEPARTMENT IMMEDIATELY FOR RE-EVALUATION. Referrals: [facility] [Outside] - 06/08/18 10:00 am Scribe Attestation: 06/07/18 19:27 I personally performed the services described in the documentation, reviewed and edited the documentation which was dictated to the scribe in my presence, and it accurately records my words and actions. (NAOMY ZALDIVAR) Scribe Documentation - Scribe Written by Jailene:: Jailene Hutchinson 06/07/18 [id number] acting as scribe for :: Heather <JUDE MCGREGOR - Last Filed: 06/07/18 22:23>
[2018-06-08 09:17] VITALS: BP 112/58
== END 2018-06-08 09:18 | disposition home or self-care (01) ==
LOC: ER 16:51
DX: F31.9 Bipolar disorder, unspecified (principal); F20.9 Schizophrenia, unspecified; F11.20 Opioid dependence, uncomplicated; F17.210 Nicotine dependence, cigarettes, uncomplicated
CPT/HCPCS: 36415; 80053; 80307; 81001; 85025; 93005; 93010; 99285

== ENCOUNTER 2020-01-02 22:18 | Emergency (ER) | payer MEDICAID, OTHER ==
[2020-01-02] MEDS ORDERED: NORMAL SALINE 1000 ML 1,000 ML IV ONE (23:43)
--- NOTE | 2020-01-02 23:45 | ER Document Report ---
ED Medical Screen (RME) - General Chief Complaint: Cold Symptoms Stated Complaint: COUGH,CONGESTION Time Seen by Provider: 01/02/20 23:37 TRAVEL OUTSIDE OF THE [place] IN LAST 30 DAYS: No - HPI Notes: 01/02/20 23:44 24-year-old male to the emergency department with complaints of 4 days of body aches, chest pain, cough, fevers that have been getting worse. He states that he believes that he had a fever at home but he does not have a thermometer but he has been hot and cold and sweaty. He states he has not been coughing up anything. He is not sure if he has had a sick contact. He did get a flu shot this season. Of note this patient is an IV heroin user. He denies any back pain. He states he last used heroin IV this morning. He states that he has been trying to quit using heroin and has not been using it as often so he is not sure if some of his symptoms are related to withdrawal as well. I performed a brief medical screening exam on the patient determined that the patient needs further evaluation and management by main side provider. I have placed initial orders to help expedite care. - Related Data Allergies/Adverse Reactions: No Known Allergies Allergy (Verified 05/05/18 12:43) Home Medications: Latuda Past Medical History - Social History Chew tobacco use (# tins/day): No Frequency of alcohol use: None Drug Abuse: Heroin, Marijuana - Past Medical History Cardiac Medical History: Denies: Hx Heart Attack, Hx Hypertension Pulmonary Medical History: Denies: Hx Asthma Neurological Medical History: Denies: Hx Cerebrovascular Accident, Hx Seizures Renal/ Medical History: Denies: Hx Peritoneal Dialysis GI Medical History: Denies: Hx Hepatitis, Hx Hiatal Hernia, Hx Ulcer Psychiatric Medical History: Reports: Hx Bipolar Disorder, Hx Depression, Hx Schizophrenia Infectious Medical History: Denies: Hx Hepatitis Past Surgical History: Reports: Hx Oral Surgery, Hx Orthopedic Surgery - Left foot, Hx Tonsillectomy. Denies: Hx Open Heart Surgery, Hx Pacemaker - Immunizations Hx Diphtheria, Pertussis, Tetanus Vaccination: Yes Physical Exam - Vital signs Vitals: Temp Pulse Resp BP Pulse Ox 98.3 F 111 H 18 124/77 98 01/02/20 22:26 01/02/20 22:26 01/02/20 22:26 01/02/20 22:26 01/02/20 22:26 Course - Vital Signs Vital signs: Temp Pulse Resp BP Pulse Ox 98.3 F 111 H 18 124/77 98 01/02/20 22:26 01/02/20 22:26 01/02/20 22:26 01/02/20 22:26 01/02/20 22:26
[2020-01-03 00:31] LABS: ABSOLUTE BASOPHILS # (AUTO) 0.1 10^3/uL (0.0-0.2); ABSOLUTE EOSINOPHILS # (AUTO) 0.4 10^3/uL (0.0-0.6); ABSOLUTE LYMPHOCYTES (AUTO) 1.2 10^3/uL (0.5-4.7); ABSOLUTE MONOCYTES (AUTO) 0.6 10^3/uL (0.1-1.4); ABSOLUTE NEUT (AUTO) 4.8 10^3/uL (1.7-8.2); EOSINOPHILS % (AUTO) 6.4 % (0-6); HEMATOCRIT 46.1 % (37.9-51.0); HEMOGLOBIN 16.1 g/dL (13.5-17.0); LYMPHOCYTES % (AUTO) 16.6 % (13-45); MEAN CORPUSCULAR HEMOGLOBIN 28.8 pg (27.0-33.4); MEAN CORPUSCULAR VOLUME 83 fl (80-97); MONOCYTES % (AUTO) 8.1 % (3-13); PLATELET COUNT 201 10^3/uL (150-450); RED BLOOD COUNT 5.58 10^6/uL (4.35-5.55); RED CELL DISTRIBUTION WIDTH 13.3 % (11.5-14.0); SEGMENTED NEUTROPHILS % (AUTO) 67.9 % (42-78); TOTAL CELLS COUNTED % (AUTO) 100 %
--- NOTE | 2020-01-03 00:43 | RADIOLOGY REPORT (SQ) ---
EXAM DESCRIPTION: XR CHEST 2 VIEWS COMPLETED DATE/TME: 01/02/2020 23:43 CLINICAL HISTORY: chest pain, cough, fever, IVDA COMPARISON: None. FINDINGS: Frontal and lateral views of the chest. Cardiomediastinal silhouette: Normal size and contour. Lungs: No consolidation, pneumothorax, or pleural effusion. Bones: No acute osseous abnormality. Upper abdomen: No abnormality identified. IMPRESSION: 1. No acute pulmonary process identified.
[2020-01-03 00:44] LABS: ALBUMIN 4.9 g/dL (3.5-5.0); ALKALINE PHOSPHATASE 92 U/L (38-126); ANION GAP 12 (5-19); ASPARTATE AMINO TRANSFERASE 29 U/L (17-59); BILIRUBIN,DIRECT 0.3 mg/dL (0.0-0.4); BILIRUBIN,TOTAL 0.8 mg/dL (0.2-1.3); BLOOD UREA NITROGEN 13 mg/dL (7-20); CARBON DIOXIDE 31 mmol/L (22-30); CHLORIDE 99 mmol/L (98-107); GLUCOSE 97 mg/dL (75-110); POTASSIUM 3.8 mmol/L (3.6-5.0); TOTAL PROTEIN 8.3 g/dL (6.3-8.2)
--- NOTE | 2020-01-03 05:08 | ER Document Report ---
Entered by BRUNO CASTELLON SCRIBE 01/03/20 0344 Acting as scribe for:CONSUELO PIERRE MD ED General - General Chief Complaint: Cold Symptoms Stated Complaint: COUGH,CONGESTION Time Seen by Provider: 01/02/20 23:37 Information source: Patient Notes: 24-year-old male presents to the emergency department with productive cough that began 4 days. Patient reports tightness in chest, sore throat, cough with green sputum and rhinorrhea. Patient denies being up to date on the seasonal flu vac cine. Patient reports sick contact with friend. TRAVEL OUTSIDE OF THE [place] IN LAST 30 DAYS: No - Related Data Allergies/Adverse Reactions: No Known Allergies Allergy (Verified 05/05/18 12:43) Home Medications: Latuda Past Medical History - General Information source: Patient - Social History Smoking Status: Current Every Day Smoker Cigarette use (# per day): Yes Chew tobacco use (# tins/day): No Frequency of alcohol use: None Drug Abuse: Heroin, Marijuana Family History: Reviewed & Not Pertinent Patient has suicidal ideation: No Patient has homicidal ideation: No Psychiatric Medical History: Reports: Hx Bipolar Disorder, Hx Depression, Hx Schizophrenia Past Surgical History: Reports: Hx Oral Surgery, Hx Orthopedic Surgery - Left foot, Hx Tonsillectomy - Immunizations Hx Diphtheria, Pertussis, Tetanus Vaccination: Yes Review of Systems - Review of Systems Constitutional: No symptoms reported EENT: See HPI, Nose discharge, Throat pain Cardiovascular: No symptoms reported Respiratory: See HPI, Cough, Sputum Gastrointestinal: No symptoms reported Genitourinary: No symptoms reported Male Genitourinary: No symptoms reported Musculoskeletal: No symptoms reported Skin: No symptoms reported Hematologic/Lymphatic: No symptoms reported Neurological/Psychological: No symptoms reported -: Yes All other systems reviewed and negative Physical Exam - Vital signs Vitals: Temp Pulse Resp BP Pulse Ox 98.3 F 111 H 18 124/77 98 01/02/20 22:26 01/02/20 22:26 01/02/20 22:26 01/02/20 22:01/02/20 22:26 - Notes Notes: Physical Exam: General: Alert, appears well. HEENT: Normocephalic. Atraumatic. PERRL. Extraocular movements intact. Oropharynx clear. Neck: Supple. Non-tender. Respiratory: No respiratory distress. Clear and equal breath sounds bilaterally. Cardiovascular: Regular rate and rhythm. Abdominal: Normal Inspection. Non-tender. No distension. Normal Bowel Sounds. Back: No gross abnormalities. Extremities: Moves all four extremities. Upper extremities: Normal inspection. Normal ROM. Lower extremities: Normal inspection. No edema. Normal ROM. Neurological: Normal cognition. AAOx4. Normal speech. Psychological: Normal affect. Normal Mood. Skin: Warm. Dry. Normal color. Course - Re-evaluation Re-evalutation: 01/03/20 05:04 Patient is resting comfortably waiting for discharge at this time. - Vital Signs Vital signs: Temp Pulse Resp BP Pulse Ox 98.1 F 95 20 112/78 99 01/03/20 02:21 01/03/20 02:21 01/03/20 02:21 01/03/20 02:21 01/03/20 02:21 - Laboratory Result Diagrams: 01/03/20 00:07 01/03/20 00:07 Laboratory results interpreted by me: 01/03/20 01/03/20 00:07 00:07 RBC 5.58 H Eos % (Auto) 6.4 H Carbon Dioxide 31 H Total Protein 8.3 H 01/03/20 05:04 Laboratories does not show any acute process. - Diagnostic Test Radiology reviewed: Image reviewed, Reports reviewed Radiology results interpreted by me: 01/03/20 05:03 Chest x-ray does not disclose any pneumonia or any acute cardiopulmonary process. Discharge - Discharge Clinical Impression: Upper respiratory infection, Acute bronchitis Condition: Stable Disposition: HOME, SELF-CARE Instructions: Upper Respiratory Infection, or Child ([facility]), Acetaminophen Additional Instructions: Bronchitis You have acute bronchitis. This disease is an infection or inflammation of the air passageways in your lungs. Symptoms usually include cough, low grade fever, shortness of breath, and wheezing. The cough usually persists for a couple of weeks. Most cases of bronchitis get better without antibiotics. We prescribe antibiotics when we believe bacteria are damaging your airways, or if there's high risk the bronchitis will worsen into pneumonia. Increase your fluid intake. A cool mist humidifier may make your lungs more comfortable. An expectorant (cough medicine that loosens phlegm) can help. If you smoke, STOP!!! Recovery from bronchitis can be somewhat slow, but you should see improvement within a day or two. Repeated episodes of bronchitis may result in lung damage -- for example, chronic bronchitis, recurrent pneumonias, or emphysema. Call the doctor if you develop increasing fever, shortness of breath, chest pain, bloody sputum, or otherwise worsen. If you have not improved at all after several days, contact the physician. Prescriptions: Methylprednisolone [Medrol Dosepack (4 mg/Tab) 21 Tab/Dosepak] 4 mg PO ASDIR PRN #21 tab.ds.pk PRN Reason: Azithromycin [Zithromax 250 mg Tablet] 250 mg PO ASDIR PRN #6 tablet PRN Reason: I personally performed the services described in the documentation, reviewed and edited the documentation which was dictated to the scribe in my presence, and it accurately records my words and actions.
[2020-01-03 05:28] VITALS: BP 140/80
== END 2020-01-03 05:24 | disposition home or self-care (01) ==
LOC: ER 22:18
DX: J06.9 Acute upper respiratory infection, unspecified (principal); J20.9 Acute bronchitis, unspecified; R05 Cough; R09.81 Nasal congestion; R07.9 Chest pain, unspecified; J02.9 Acute pharyngitis, unspecified; J34.89 Other specified disorders of nose and nasal sinuses; F17.210 Nicotine dependence, cigarettes, uncomplicated
CPT/HCPCS: 36415; 71046; 80053; 83605; 85025; 87040; 99283

== ENCOUNTER → 2020-02-16 | Outpatient (CLI) | payer MEDICAID ==
[2020-02-16 16:38] LABS: ABSOLUTE EOSINOPHILS # (AUTO) 0.3 10^3/uL (0.0-0.6); ABSOLUTE LYMPHOCYTES (AUTO) 1.7 10^3/uL (0.5-4.7); ABSOLUTE MONOCYTES (AUTO) 0.4 10^3/uL (0.1-1.4); ABSOLUTE NEUT (AUTO) 4.2 10^3/uL (1.7-8.2); BASOPHILS % (AUTO) 0.7 % (0-2); EOSINOPHILS % (AUTO) 4.3 % (0-6); HEMATOCRIT 46.7 % (37.9-51.0); HEMOGLOBIN 16.1 g/dL (13.5-17.0); MEAN CORPUSCULAR HEMOGLOBIN 28.5 pg (27.0-33.4); MEAN CORPUSCULAR HGB CONC 34.6 g/dL (32.0-36.0); MEAN CORPUSCULAR VOLUME 82 fl (80-97); MONOCYTES % (AUTO) 6.6 % (3-13); PLATELET COUNT 210 10^3/uL (150-450); RED BLOOD COUNT 5.67 10^6/uL (4.35-5.55); RED CELL DISTRIBUTION WIDTH 12.7 % (11.5-14.0); SEGMENTED NEUTROPHILS % (AUTO) 63.4 % (42-78); TOTAL CELLS COUNTED % (AUTO) 100 %; WHITE BLOOD COUNT 6.7 10^3/uL (4.0-10.5)
[2020-02-16 16:48] LABS: INTERNATIONAL RATION (INR) 0.95; PROTHROMBIN TIME 12.7 SEC (11.4-15.4)
== END ==
LOC: OD 15:58
PROVIDERS: ATTEND Internal Medicine Gastroenterology
DX: B19.20 Unspecified viral hepatitis C without hepatic coma (principal)
CPT/HCPCS: 36415; 80074; 82172; 82247; 82977; 83010; 83883; 84460; 85025; 85610; 86701

== ENCOUNTER → 2020-04-27 | Outpatient (CLI) | payer MEDICAID ==
[2020-04-27 14:59] LABS: ABSOLUTE EOSINOPHILS # (AUTO) 0.5 10^3/uL (0.0-0.6); ABSOLUTE LYMPHOCYTES (AUTO) 1.5 10^3/uL (0.5-4.7); ABSOLUTE MONOCYTES (AUTO) 0.5 10^3/uL (0.1-1.4); ABSOLUTE NEUT (AUTO) 3.4 10^3/uL (1.7-8.2); BASOPHILS % (AUTO) 0.6 % (0-2); EOSINOPHILS % (AUTO) 8.4 % (0-6); HEMATOCRIT 33.3 % (37.9-51.0); HEMOGLOBIN 11.2 g/dL (13.5-17.0); LYMPHOCYTES % (AUTO) 25.6 % (13-45); MEAN CORPUSCULAR HEMOGLOBIN 29.6 pg (27.0-33.4); MEAN CORPUSCULAR HGB CONC 33.6 g/dL (32.0-36.0); MEAN CORPUSCULAR VOLUME 88 fl (80-97); MONOCYTES % (AUTO) 7.8 % (3-13); PLATELET COUNT 239 10^3/uL (150-450); RED BLOOD COUNT 3.79 10^6/uL (4.35-5.55); RED CELL DISTRIBUTION WIDTH 16.2 % (11.5-14.0); SEGMENTED NEUTROPHILS % (AUTO) 57.6 % (42-78); TOTAL CELLS COUNTED % (AUTO) 100 %; WHITE BLOOD COUNT 5.9 10^3/uL (4.0-10.5)
[2020-04-27 15:19] LABS: ALBUMIN 4.6 g/dL (3.5-5.0); ALKALINE PHOSPHATASE 120 U/L (38-126); ANION GAP 6 (5-19); ASPARTATE AMINO TRANSFERASE 24 U/L (17-59); BILIRUBIN,TOTAL 0.3 mg/dL (0.2-1.3); BLOOD UREA NITROGEN 19 mg/dL (7-20); CALCIUM 9.9 mg/dL (8.4-10.2); CARBON DIOXIDE 30 mmol/L (22-30); CHLORIDE 101 mmol/L (98-107); GLUCOSE 89 mg/dL (75-110); POTASSIUM 4.7 mmol/L (3.6-5.0); TOTAL PROTEIN 7.7 g/dL (6.3-8.2)
== END ==
LOC: OD 14:02
PROVIDERS: ATTEND Internal Medicine Gastroenterology
DX: B18.2 Chronic viral hepatitis C (principal)
CPT/HCPCS: 36415; 80053; 85025; 87522